=== PATIENT | male | born 1950 | race Caucasian/White ===

== ENCOUNTER 2021-07-21 14:24 | Emergency (ER) | payer MEDICARE, MEDICAID, SELFPAY ==
[2021-07-21 14:25] VITALS: BP 134/90; PULSE 90; RESP 16; TEMP 37.7; O2SAT 98; BMI 24.9
[2021-07-21 14:36] VITALS: PULSE 88; O2SAT 93
--- NOTE | 2021-07-21 14:45 | HMH.EDWEAK ---
ED Disposition Clinical Impression: COVID-19 Disposition: Home, Self-Care Condition on Discharge: Good Instructions: DI for COVID-19 (Suspected or Confirmed ) Additional Instructions: follow up pcp as needed, return here for worse Prescriptions: Ondansetron [Zofran 4mg ODT] 4 mg PO TIDP PRN #15 tab PRN Reason: Nausea And Vomiting Prescription Printed Referrals: Provider,Referral, MD [Primary Care Provider] - - Critical Care Critical Care Time: No Attestation: On , the high probability of a clinically significant, sudden or life threatening deterioration of the following system(s) required my full and direct attention, intervention and personal management. The time I documented below is in addition to time spent performing reported procedures but includes the following listed in this critical care notation. Medical Decision Making - Medical Records Medical records reviewed: Yes: I reviewed the patient's medical records. - Aashish Inquiry Pt receiving controlled substance: No Vital Signs: 07/21/21 14:25 07/21/21 14:36 07/21/21 15:00 Temperature 100 F H Temperature Source Oral Pulse Rate 88 Pulse Rate [Radial] 90 Respiratory Rate 16 Blood Pressure Blood Pressure [Right Arm] 134/90 Blood Pressure Mean [Right Arm] 104 Blood Pressure Position [Right Arm] Sitting 02 Sat by Pulse Oximetry 98 93 L 96 Oxygen Delivery Method Room Air 07/21/21 15:29 Temperature Temperature Source Pulse Rate 91 H Pulse Rate [Radial] Respiratory Rate Blood Pressure 119/80 Blood Pressure [Right Arm] Blood Pressure Mean [Right Arm] Blood Pressure Position [Right Arm] 02 Sat by Pulse Oximetry 95 Oxygen Delivery Method - Lab Data Lab Results 07/21/21 14:33: SARS-CoV-2 (PCR) Detected A, Influenza A Untype (PCR) Not detected, Influenza Type B (PCR) Not detected 07/21/21 14:55: WBC 5.1, RBC 4.68, Hgb 15.2, Hct 45.3, MCV 96.9 H, MCH 32.6 H, MCHC 33.6, RDW 13.2, Plt Count 271, MPV 8.1, Neut % (Auto) 70.1, Lymph % (Auto) 22.4, [place] % (Auto) 4.9, Eos % (Auto) 0.7, Baso % (Auto) 2.0, Neut # (Auto) 3.6, Lymph # (Auto) 1.1, [place] # (Auto) 0.3, Eos # (Auto) 0.0, Baso # (Auto) 0.1 07/21/21 14:55: Sodium 134 L, Potassium 4.3, Chloride 98, Carbon Dioxide 26, Anion Gap 14.3, BUN 15, Creatinine 0.90, Estimated Creat Clear 83, Estimated GFR 84, Est GFR ( Amer) 102, Glucose 96, Calcium 8.2 L, Total Bilirubin 0.9, AST 64 H, ALT 42, Alkaline Phosphatase 81, Total Protein 8.8 H, Albumin 4.3, Globulin 4.5 H, Albumin/Globulin Ratio 1.0 L Result diagrams: 07/21/21 14:55 07/21/21 14:55 Orders (Tests/Meds): ED MEDICATIONS Generic Name Dose Route Start Last Admin Trade Name Freq PRN Reason Stop Dose Admin Sodium Chloride 1,000 mls @ 999 mls/hr 07/21/21 14:45 07/21/21 15:00 Sod Chlor 0.9% 1000ml Bag IV 07/21/21 15:45 999 mls/hr .Q1H1M NEYMAR Administration ORDERS Category Date Time Status Urinalysis and Microscopic Stat Lab 07/21/21 14:44 Ordered Weakness HPI - General Chief complaint: Weakness Stated complaint: not eating Time Seen by Provider: 07/21/21 14:45 Mode of Arrival: Wheelchair Limitations: No Limitations Description of Symptoms (Recalled from ER Triage Doc. by RN): TO ED PER PVT CAR WITH C/O DIARRHEA X 8 DAYS GENERALIZED WEAKNESS AND 50 LB WEIGHT LOSS PER SO. PT STATES HE HAS DIARRHEA EVERY TIME HE EATS SOMETHING DENIES ANY NAUSEA, VOMITING, FEVER, CHILLS. - History of Present Illness HPI Narrative: mult episodes diarrhea wekaness severla days Complaint: generalized weakness Onset (ago): day(s) Duration: constant Location: generalized Severity: moderate Associated symptoms: loss of appetite - Related Data Previous Rx's Medication Instructions Recorded Ondansetron [Zofran 4mg ODT] 4 mg PO TIDP PRN #15 tab 07/21/21 Allergies Allergy/AdvReac Type Severity Reaction Status Date / Time No Known Allergies Allergy Verified 07/05
[2021-07-21 14:49] LABS: Influenza A, PCR Not Detected (NotDetected); Influenza B, PCR Not Detected (NotDetected)
[2021-07-21 15:00] VITALS: O2SAT 96
[2021-07-21 15:11] LABS: Chloride 98 mmol/L (98-107)
[2021-07-21 15:12] LABS: Basophils # 0.1 K/mm3 (0-0.2); Eosinophils % 0.7 % (0.1-12.0); Hematocrit 45.3 % (42.0-52.0); Hemoglobin 15.2 g/dL (14.1-18.0); Lymphocytes # 1.1 K/mm3 (0.7-4.5); Lymphocytes % 22.4 % (10-50); Mean Corpuscular HGB Conc 33.6 g/dL (31.8-35.4); Mean Corpuscular Hemoglobin 32.6 pg (27.0-31.2); Mean Corpuscular Volume 96.9 fl (80-94); Mean Platelet Volume 8.1 fl (7.4-10.4); Monocytes # 0.3 K/mm3 (0.1-1.0); Monocytes % 4.9 % (1.7-9.3); Neutrophils # 3.6 K/mm3 (1.8-7.8); Neutrophils % 70.1 % (37.0-80.0); Platelet Count 271 K/mm3 (142-424); Potassium 4.3 mmoL/L (3.5-5.1); Red Blood Count 4.68 M/mm3 (4.60-6.20); Red Cell Distribution Width 13.2 % (11.5-17.5); Sodium 134 mmol/L (136-145); White Blood Count 5.1 K/mm3 (4.8-10.8)
[2021-07-21 15:14] LABS: Alanine Aminotransferase 42 U/L (12-78); Alkaline Phosphatase 81 U/L (38-126); Anion Gap 14.3 mEq/L (5-15); Aspartate Amino Transferase 64 U/L (17-59); Bilirubin,Total 0.9 mg/dl (0.2-1.3); Carbon Dioxide 26 mmol/L (22.0-30.0)
[2021-07-21 15:15] LABS: Albumin Level 4.3 g/dl (3.5-5.0); Calcium 8.2 mg/dl (8.4-10.2); Globulin 4.5 g/dL (1.3-3.2); Glucose 96 mg/dl (74-100); Total Protein,Serum 8.8 g/dl (6.3-8.2)
[2021-07-21 15:20] LABS: Blood Urea Nitrogen 15 mg/dl (9-20); Creatinine Clearance Estimated 83 mL/min (50-200); Estimated Glomerular Filt Rate 84 ml/min (>60); GFR (African American) 102 ML/MIN (>60)
[2021-07-21 15:27] LABS: Coronavirus 19, PCR Detected (NotDetected)
[2021-07-21 15:29] VITALS: BP 119/80; PULSE 91; O2SAT 95
[2021-07-21 16:18] VITALS: BP 127/69; PULSE 71; RESP 15; TEMP 36.8; O2SAT 98
== END 2021-07-21 16:20 | disposition home or self-care (01) ==
PROVIDERS: Emergency Provider Emergency Medicine
DX: U07.1 COVID-19 (principal)
CPT/HCPCS: 80053; 85025; 96365; 99284; C9803; U0003; U0005

== ENCOUNTER 2024-06-09 14:42 | Emergency (ER) | payer MEDICARE, MEDICAID, SELFPAY ==
[2024-06-09] VITALS (9 sets, daily range): BP systolic 125–173; BP diastolic 83–114; PULSE 76–100; RESP 18–20; TEMP 37.1–37.7; O2SAT 95–98; BMI 25.0
[2024-06-09 15:29] LABS: Basophils % 0.2 % (0.1-2.0); Hematocrit 47.9 % (42.0-52.0); Hemoglobin 16.3 g/dL (14.1-18.0); Lymphocytes # 0.9 K/mm3 (0.7-4.5); Lymphocytes % 10.1 % (10-50); Mean Corpuscular Hemoglobin 31.2 pg (27.0-31.2); Mean Corpuscular Volume 91.6 fl (80-94); Mean Platelet Volume 9.6 fl (7.4-10.4); Monocytes # 0.5 K/mm3 (0.1-1.0); Monocytes % 5.5 % (1.7-9.3); Neutrophils # 7.6 K/mm3 (1.8-7.8); Platelet Count 235 K/mm3 (142-424); Red Blood Count 5.23 M/mm3 (4.60-6.20); Red Cell Distribution Width 13.2 % (11.5-17.5)
[2024-06-09 15:30] LABS: Microscopic, Urine URINE MICROSCOPIC (MICROSCOPIC)
[2024-06-09 15:37] LABS: Appearance,Urine CLEAR (Clear); Bilirubin,Urine Negative (Negative); Blood, Urine 1+ (Negative); Color,Urine YELLOW (Yellow); Glucose,Urine (UA) Negative (Negative); Ketones,Urine Negative (Negative); Leukocyte Esterase,Urine 1+ (Negative); Nitrate,Urine Negative (Negative); Protein,Urine Negative (Negative); Specific Gravity, Urine 1.015 (1.005-1.030); Urobilinogen,Urine 0.2 EU/dl (0.2)
--- NOTE | 2024-06-09 15:46 | CT_ITS ---
PROCEDURE INFORMATION: Exam: CT Abdomen And Pelvis With Contrast Exam date and time: 06/09/2024 4:36 PM Age: 73 years old Clinical indication: Other: Urinary retention; Additional info: Urinary retention, bloody stool TECHNIQUE: Imaging protocol: Computed tomography of the abdomen and pelvis with contrast. Radiation optimization: All CT scans at this facility use at least one of these dose optimization techniques: automated exposure control; mA and/or kV adjustment per patient size (includes targeted exams where dose is matched to clinical indication); or iterative reconstruction. Contrast material: ISOVUE; Contrast volume: 75 ml; Contrast route: IV; COMPARISON: No relevant prior studies available. FINDINGS: Lungs: The lung bases are clear. Liver: Hepatic steatosis. There are subcentimeter hypodensities in the left lobe of the liver likely representing cysts. Gallbladder and biliary ducts: Normal. No calcified stones. No ductal dilation. Pancreas: Normal. No ductal dilation. Spleen: Normal. No splenomegaly. Adrenal glands: Normal. No mass. Kidneys and ureters: Mild bilateral hydronephrosis and hydroureter, likely secondary to the extensive urinary bladder distension. There are mild edematous changes surrounding each kidney. Stomach and bowel: The small bowel loops are not thickened and are nondilated. The colon is unremarkable. Appendix: The appendix is normal in appearance. No evidence of appendicitis. Intraperitoneal space: Unremarkable. No free air. No significant fluid collection. Vasculature: Unremarkable. No abdominal aortic aneurysm. Lymph nodes: Unremarkable. No enlarged lymph nodes. Urinary bladder: Severe distension of the urinary bladder. The dome of the bladder extends beyond the level of the umbilicus. Small bladder diverticulum on the right. Reproductive: Prostatomegaly. The prostate measures about 8.2 x 6.6 x 6.4 cm. Bones/joints: No acute osseous lesion. There are moderate chronic degenerative changes throughout the visualized spine. Soft tissues: Tiny periumbilical hernia. IMPRESSION: 1. Severe distension of the urinary bladder. The dome of the bladder is distended superior to the level of the umbilicus. 2. Mild bilateral hydronephrosis and bilateral hydroureter, likely secondary to the extensive urinary bladder distension. No obstructing ureteral stones identified. 3. Prostatomegaly. 4. Hepatic steatosis.
--- NOTE | 2024-06-09 15:47 | HMH.EDGENADL ---
Discharge Plan Disposition Patient Disposition: Home, Self-Care Prescriptions Prescriptions: New tamsulosin [Flomax] 0.4 mg capsule 0.4 mg PO DAILY 14 Days Qty: 14 0RF cefdinir 300 mg capsule 300 mg PO BID 10 Days Qty: 20 0RF Referrals Follow up/Referrals: Bill Napoles MD [Staff Physician] - See instructions Provider,MD [place] [Primary Care Provider] - See instructions Activity Restrictions/Add. Instructions Additional Instructions/Restrictions: You have evidence of acute urinary retention and a urinary tract infection secondary to an enlarged prostate. Please follow-up closely with our urologist particularly in 5 to 7 days to have your Shelton catheter take that out to have a trial to see if you can urinate. Return with any high fevers significant worsening of your pain or other concerns. Clinical Impressions Clinical Impression: Acute urinary retention, Hematochezia, Hypertrophy of prostate, Acute UTI Instructions Patient Instructions: DI for Urinary Tract Infection (UTI), DI for Urinary Tract Infection in Children Print Language Print Language: [place] Discharge ED Provider: Case Swenson General Adult HPI General Chief complaint: Urogenital-Male Stated complaint: pain and frequent urin, blood in stool, light-head Time Seen by Provider: 06/09/24 15:41 Mode of Arrival: Wheelchair Source of Information: Patient Limitations: No Limitations Description of Symptoms (Recalled from ER Triage Doc. by RN): PT REPORTS LOWER ABDOMINAL PAIN, BLOOD IN STOOL, UNABLE TO URINATE, FREQUENCY AND URGENCY SINCE SUNDAY. PT REPORTS SLIGHT HEADACHE AND DIZZINESS History of Present Illness HPI narrative: Patient is a 73-year-old presenting today with multiple complaints including lower abdominal pain blood in his stool and difficulty urinating. States that he has had increased frequency and urgency for the last several days also had a hard time having a bowel movement last night when he did it would had bright red blood in it. States he has not been constipated up to that point. Denies any fevers or chills. Also states he has been very mildly lightheaded. Denies any other significant past medical history. Related Data Previous Rx's ?Medication ?Instructions ?Recorded cefdinir 300 mg capsule 300 mg PO BID 10 days #20 caps 06/09/24 tamsulosin 0.4 mg capsule (Flomax) 0.4 mg PO DAILY 14 days #14 caps 06/09/24 Allergies Allergy/AdvReac Type Severity Reaction Status Date / Time No Known Allergies Allergy Verified 07/21/21 14:43 [facility] Disclaimer: The information contained in this section may have been updated after the patient was seen, as this information can be updated by other users. Social History Smoking Status: Current every day smoker alcohol intake: never current occupational status: other Travel in the last 8 weeks: None Other Medical History Have you received the Flu Vaccine for this season: No Have you received the Pneumonia Vaccine: No ROS Obtained: Yes All systems reviewed & no additional complaints except as documented Physical Exam General General appearance: alert and in no apparent distress Respiratory Respiratory exam: Present normal lung sounds bilaterally Cardiovascular Cardiovascular exam: Present regular rate Abdominal Exam Abdominal exam: Present distention and tenderness (Bilateral lower quadrant tenderness palpation and suprapubic tenderness to palpation) Neurological Exam Neurological exam: Present alert and oriented X3 Medical Decision Making Medical Records Screening: Per USPSTF and CDC recommendations, given the prevalence of disease in our region, it is our hospital?s policy to screen for HIV and viral Hepatitis for all patients aged 18 and over and those with ongoing risk factors. Aashish Inquiry Pt receiving controlled substance: No Aashish was queried for this patient: No Vital Signs: 06/09/24 14:44 06/09/24 17:07 06/09/24 17:15 Temperature 99.8 F H Temperature Source Oral Pulse Rate 90 83 Pulse Rate [Radial] 100 H Respiratory Rate 18 Blood Pressure 159/114 H 173/107 H Blood Pressure [Right Arm] 154/112 H Blood Pressure Mean [Right Arm] 126 Blood Pressure Source [Right Arm] Automatic Cuff Blood Pressure Position [Right Arm] Sitting 02 Sat by Pulse Oximetry 98 97 95 Oxygen Delivery Method Room Air Room Air Room Air 06/09/24 17:30 06/09/24 17:45 Temperature Temperature Source Pulse Rate 85 85 Pulse Rate [Radial] Respiratory Rate Blood Pressure 159/102 H 144/90 H Blood Pressure [Right Arm] Blood Pressure Mean [Right Arm] Blood Pressure Source [Right Arm] Blood Pressure Position [Right Arm] 02 Sat by Pulse Oximetry 95 95 Oxygen Delivery Method Room Air Room Air Lab Data Lab results reviewed: Yes I reviewed the patient's lab results. Lab Results 06/09/24 15:17: WBC 9.0, RBC 5.23, Hgb 16.3, Hct 47.9, MCV 91.6, MCH 31.2, MCHC 34.0, RDW 13.2, Plt Count 235, MPV 9.6, Neut % (Auto) 84.0 H, Lymph % (Auto) 10.1, [place] % (Auto) 5.5, Eos % (Auto) 0.0 L, Baso % (Auto) 0.2, Neut # (Auto) 7.6, Lymph # (Auto) 0.9, [place] # (Auto) 0.5, Eos # (Auto) 0.0, Baso # (Auto) 0.0, Sodium 142, Potassium 4.1, Chloride 107, Carbon Dioxide 22, Anion Gap 17.1 H, BUN 14, Creatinine 1.10, Estimated Creat Clear 75, Estimated GFR 66, Est GFR ( Amer) 80, Glucose 136 H, Lactate 1.3, Calcium 9.8, Total Bilirubin 0.5, AST 71 H, ALT 43, Alkaline Phosphatase 132 H, Total Protein 8.8 H, Albumin 5.3 H, Globulin 3.5 H, Albumin/Globulin Ratio 1.5, HCV Ab DODIE w/Rflx PCR Qn Negative, HIV Ag/Ab Combo Qual Negative 06/09/24 15:25: Urine Color Yellow, Urine Appearance Clear, Urine pH 6.0, Ur Specific [place] 1.015, Urine Protein Negative, Urine Glucose (UA) Negative, Urine Ketones Negative, Urine Blood 1+ A, Urine Nitrate Negative, Urine Bilirubin Negative, Urine Urobilinogen 0.2, Ur Leukocyte Esterase 1+ A, Urine RBC 3-5, Urine WBC 3-5, Ur Squamous Epith Cells Occasional, Urine Bacteria Trace 06/09/24 15:17 06/09/24 15:17 Orders (Tests/Meds): ED MEDICATIONS Generic Name Dose Route Start Last Admin Trade Name Freq PRN Reason Stop Dose Admin Sodium Chloride 10 ml 06/09/24 15:16 Sodium Chloride 0.9% 10ml Flush Syringe IV 07/09/24 15:15 NEEDED PRN Maintain IV Site Sodium Chloride 10 ml 06/09/24 16:44 06/09/24 16:46 Sodium Chloride 0.9% 10ml Syr (Rad Only) IV 07/09/24 16:43 10 ml NEEDED PRN Administration Maintain IV Site Discontinued Medications Generic Name Dose Route Start Last Admin Trade Name Freq PRN Reason Stop Dose Admin Lactated Ringer's 1,000 mls @ 999 mls/hr 06/09/24 16:00 06/09/24 17:18 Lactated Ringer's 1000 Ml Bag IV 06/09/24 17:00 999 mls/hr .Q1H1M NEYMAR Administration Ceftriaxone Sodium 1 gm/ 50 mls @ 100 mls/hr 06/09/24 17:14 06/09/24 17:17 Sodium Chloride IV 06/09/24 17:43 100 mls/hr ONCE ONE Administration Iopamidol 75 ml 06/09/24 16:44 06/09/24 16:46 Iopamidol-370 (76%);100ml Bottle IV 06/09/24 16:45 75 ml ONCE ONE Administration Morphine Sulfate 4 mg 06/09/24 15:46 06/09/24 17:12 Morphine 4mg/Ml Syringe IV 06/09/24 15:47 4 mg ONCE ONE Administration Ondansetron HCl 4 mg 06/09/24 15:46 06/09/24 17:12 Ondansetron 4mg/2ml Vial IV 06/09/24 15:47 4 mg ONCE ONE Administration ORDERS Category Date Time Status CT abdomen pelvis w con Stat Cat Scan 06/09/24 15:46 Completed Complete Blood Count Auto Diff Stat Lab 06/09/24 15:17 Completed Comprehensive Metabolic Panel Stat Lab 06/09/24 15:17 Completed HIV Combo Stat Lab 06/09/24 15:17 Completed Hepatitis C Ab Qual. W/ RFX Stat Lab 06/09/24 15:17 Completed Lactic Acid Stat Lab 06/09/24 15:17 Completed Urinalysis and Microscopic Stat Lab 06/09/24 15:25 Completed Urine Culture Stat Micro 06/09/24 15:25 Received Medical Decision Narrative: 73-year-old with a distended lower abdomen and urinary retention and difficulty with having defecation last night with little bit of blood in the stool. Differential includes constipation and urinary retention secondary to that tumor urinary tract infection with debris etc. Will get a contrasted CT scan administer pain medicine nausea medicine IV fluids and reassess. Reassessment 616 CT scan performed which I personally interpreted which shows a very enlarged bladder and prostate hypertrophy. Also has some hydronephrosis likely secondary to the obstruction. It seems to be secondary to the prostate hypertrophy. Shelton catheter was placed with significant improvement in the patient's symptoms 1200 cc of urine was taken out. Patient did have evidence of urinary tract infection Rocephin given in the emergency department and cefdinir sent home with the patient. He has no other signs or symptoms of prostatitis but that is on the differential. He has been advised to follow-up with urology in 5 to 7 days for a voiding trial to return with any significant worsening symptoms such as fever etc. A leg bag was given to the patient. Shelton catheter care discussed with the patient and was discharged in improved and stable condition. Critical Care Critical Care Time Critical Care Time: No
[2024-06-09 16:19] LABS: Lactic Acid 1.3 mmol/L (0.7-2.1)
[2024-06-09 16:20] LABS: Alanine Aminotransferase 43 U/L (12-78); Albumin Level 5.3 g/dl (3.5-5.0); Albumin/Globulin Ratio 1.5 (1.1-1.8); Alkaline Phosphatase 132 U/L (38-126); Anion Gap 17.1 mEq/L (5-15); Aspartate Amino Transferase 71 U/L (17-59); Bilirubin,Total 0.5 mg/dl (0.2-1.3); Blood Urea Nitrogen 14 mg/dl (9-20); Calcium 9.8 mg/dl (8.4-10.2); Carbon Dioxide 22 mmol/L (22.0-30.0); Chloride 107 mmol/L (98-107); Creatinine Clearance Estimated 75 mL/min (50-200); Estimated Glomerular Filt Rate 66 ml/min (>60); GFR (African American) 80 ML/MIN (>60); Globulin 3.5 g/dL (1.3-3.2); Glucose 136 mg/dl (74-100); Potassium 4.1 mmoL/L (3.5-5.1); Sodium 142 mmol/L (136-145); Total Protein,Serum 8.8 g/dl (6.3-8.2)
[2024-06-09 16:29] LABS: HIV Combo NEGATIVE (Negative)
[2024-06-09 16:38] LABS: Bacteria,Urine Trace /lpf; Squamous Epithelial Cell,Urine Occasional #/hpf (0-5)
[2024-06-09 16:38] LABS: Hepatitis C Ab Qual. W/ RFX NEGATIVE (Negative)
[2024-06-09] MEDS: IOPAMIDOL-370 (76%);100ML BOTTLE 75 ML IV (16:46)
[2024-06-09] MEDS: SODIUM CHLORIDE 0.9% 10ML SYR (RAD ONLY) 10 ML IV (16:46)
[2024-06-09] MEDS: MORPHINE 4MG/ML SYRINGE 4 MG IV (17:12)
[2024-06-09] MEDS: ONDANSETRON 4MG/2ML VIAL 4 MG IV (17:12)
[2024-06-09] MEDS: CEFTRIAXONE 1 GM 1 GM in 0.9 % SODIUM CHLORIDE 50 ML IV (17:17)
[2024-06-09] MEDS: LACTATED RINGERS 1000ML 1,000 ML 999 ML IV (17:18)
--- NOTE | 2024-06-09 18:03 | PC.NURSE ---
inserted argueta without issues and emptied 1200 ml of urine out immediately, pt felt better instantly
--- NOTE | 2024-06-09 18:03 | PC.NURSE ---
pt resting quietly awaiting re eval by kristy mejia
== END 2024-06-09 18:46 | disposition home or self-care (01) ==
PROVIDERS: Emergency Provider Student in an Organized Health Care Education/Training Program
DX: N39.0 Urinary tract infection, site not specified (principal); N40.0 Benign prostatic hyperplasia without lower urinary tract symptoms; R10.30 Lower abdominal pain, unspecified; K92.1 Melena; R33.8 Other retention of urine; R35.0 Frequency of micturition; R39.15 Urgency of urination; R51.9 Headache, unspecified; R42 Dizziness and giddiness
CPT/HCPCS: 51702; 74177; 80053; 81001; 83605; 85025; 86803; 87086; 87389; 96361; 96365; 96374; 96375; 99285; J0696; J2270; J2405; J7120; Q9967

== ENCOUNTER 2024-06-22 14:11 | Emergency (ER) | payer MEDICARE, MEDICAID, SELFPAY ==
[2024-06-22] VITALS (7 sets, daily range): BP systolic 125–139; BP diastolic 78–102; PULSE 79–101; RESP 16–20; TEMP 37.2–37.8; O2SAT 97–100; BMI 25.0
--- NOTE | 2024-06-22 14:40 | ED_ITS ---
<Statement entered by Case Swenson MD - 06/25/24 12:45> I was consulted by the KECIA, and we discussed the complexity of the problems being addressed. I approved the treatment and management plan for this patient?s care in the Emergency Department, thus performing a substantive portion of the medical decision making Discharge Plan Disposition Patient Disposition: Home, Self-Care Condition: Good Prescriptions Prescriptions: New levofloxacin 500 mg tablet 500 mg PO DAILY 10 Days Qty: 10 0RF polyethylene glycol 3350 [Miralax] 17 gram/dose powder 17 g PO DAILY 4 Days Qty: 68 0RF No Action tamsulosin [Flomax] 0.4 mg capsule 0.4 mg PO DAILY 90 Days Qty: 90 1RF cefdinir 300 mg capsule 300 mg PO BID 10 Days Qty: 20 0RF Referrals Follow up/Referrals: Bill Napoles MD [Staff Physician] - See instructions Provider,MD Carolina [Primary Care Provider] - See instructions Activity Restrictions/Add. Instructions Additional Instructions/Restrictions: Please take the entirety of the course of antibiotics. Increase your fluid intake. Please leave the catheter in until you are able to follow-up with urology. Please call urologist office Sunday morning. Return to the ED with any worsening of your condition. Clinical Impressions Clinical Impression: UTI (urinary tract infection) Qualifiers: Urinary tract infection type: acute cystitis Hematuria presence: with hematuria Qualified Code(s): N30.01 - Acute cystitis with hematuria Constipation Qualifiers: Constipation type: unspecified constipation type Qualified Code(s): K59.00 - Constipation, unspecified Instructions Patient Instructions: DI for Urinary Tract Infection (UTI), DI for Urinary Tract Infection in Children Print Language Print Language: Norwegian Discharge ED Provider: Case Swenson General Adult [facility] General Chief complaint: Urogenital-Male Stated complaint: F/C out on 06/16/24 now peeing blood,no bowel movem Time Seen by Provider: 06/22/24 14:39 Mode of Arrival: Ambulatory Source of Information: Patient Limitations: No Limitations Description of Symptoms (Recalled from ER Triage Doc. by RN): Patient presents via wheelchair. States his argueta catheter was removed 06/16. States he was prescribed Flomax. Stated he took one on Sunday and then took another 6 hours later, which was not prescribed, and started urinating blood. Also endorses vomiting 6 episodes. States he hasn't had a bowel movement in 3-4 days. Denies abdominal pain but endorses distension. History of Present Illness HPI narrative: Patient is a 73-year-old male who presents to the ED with complaints of urinary retention and hematuria that started today. Patient has recently been treated for UTI at the beginning of the month with cefdinir and Flomax. He had an indwelling Argueta that was removed on 06/16/2024 by urology. Related Data Previous Rx's ?Medication ?Instructions ?Recorded cefdinir 300 mg capsule 300 mg PO BID 10 days #20 caps 06/09/24 tamsulosin 0.4 mg capsule (Flomax) 0.4 mg PO DAILY 90 days #90 caps 06/16/24 levofloxacin 500 mg tablet 500 mg PO DAILY 10 days #10 tabs 06/22/24 polyethylene glycol 3350 17 17 g PO DAILY 4 days #68 grams 06/22/24 gram/dose oral powder (Miralax) Allergies Allergy/AdvReac Type Severity Reaction Status Date / Time No Known Allergies Allergy Verified 06/16/24 11:18 [facility] Disclaimer: The information contained in this section may have been updated after the patient was seen, as this information can be updated by other users. Social History Smoking Status: Current every day smoker alcohol intake: never current occupational status: other Travel in the last 8 weeks: None Have you lived/traveled outside US in past 30 days?: No Contact w/someone who lives/traveled outside US past 30 days?: No Exposure to someone with infectious disease in past 14 days?: No Do you have a fever (greater than 100.4 F or 38 C)?: No Have you tested positive for COVID-19: No Exposed to someone with COVID-19 in past 14 days?: No Do you have a sore throat?: No Do you have a cough?: No Do you have any weakness?: No Do you have any diarrhea?: No Are you experiencing any unusual bleeding?: No Do you have any muscle aches/pain?: No Do you have any abdominal pain?: No Are you experiencing loss of taste or smell?: No Other Medical History Have you received the Flu Vaccine for this season: No Have you received the Pneumonia Vaccine: No ROS Obtained: Yes Systems reviewed as appropriate & no additional complaints except as documented Physical Exam General General appearance: alert and in no apparent distress Head Head exam: atraumatic and normocephalic Eye Eye exam: Present normal appearance and PERRL ENT ENT exam: Present normal exam Neck Neck exam: Present normal inspection Chest Chest inspection: Present normal inspection and symmetric chest wall rise; Absent tenderness Respiratory Respiratory exam: Present normal lung sounds bilaterally Cardiovascular Cardiovascular exam: Present regular rate Abdominal Exam Abdominal exam: Present soft, tenderness (suprapubic) and normal bowel sounds Extremities Exam Extremities exam: Present normal inspection and full ROM Back Exam Back exam: Present normal inspection and full ROM Neurological Exam Neurological exam: Present alert and oriented X3 Psychiatric Psychiatric exam: Present normal affect and normal mood Skin Skin exam: Present warm and dry Medical Decision Making Medical Records Screening: Per USPSTF and CDC recommendations, given the prevalence of disease in our region, it is our hospital?s policy to screen for HIV and viral Hepatitis for all patients aged 18 and over and those with ongoing risk factors. Aashish Inquiry Pt receiving controlled substance: No Aashish was queried for this patient: No Vital Signs: 06/22/24 14:24 06/22/24 14:34 06/22/24 15:00 Temperature 100.1 F H Temperature Source Oral Pulse Rate 101 H 87 Pulse Rate [Radial] 95 H Respiratory Rate 16 Blood Pressure 139/102 H 133/89 Blood Pressure [R Arm] 132/82 Blood Pressure Mean [R Arm] 98 Blood Pressure Source [R Arm] Automatic Cuff 02 Sat by Pulse Oximetry 100 97 98 Oxygen Delivery Method Room Air Room Air 06/22/24 15:15 06/22/24 15:31 06/22/24 16:02 Temperature Temperature Source Pulse Rate 85 85 84 Pulse Rate [Radial] Respiratory Rate Blood Pressure 125/78 129/101 H Blood Pressure [R Arm] Blood Pressure Mean [R Arm] Blood Pressure Source [R Arm] 02 Sat by Pulse Oximetry 97 98 98 Oxygen Delivery Method Room Air Room Air 06/22/24 16:58 Temperature 98.9 F Temperature Source Pulse Rate 79 Pulse Rate [Radial] Respiratory Rate 20 Blood Pressure 129/101 H Blood Pressure [R Arm] Blood Pressure Mean [R Arm] Blood Pressure Source [R Arm] 02 Sat by Pulse Oximetry Oxygen Delivery Method Room Air Lab Data Lab Results 06/22/24 15:00: Urine Color Kitty, Urine Appearance Cloudy, Urine pH 6.5, Ur Specific [place] 1.015, Urine Protein 3+ A, Urine Glucose (UA) Trace, Urine Ketones Trace, Urine Blood 3+ A, Urine Nitrate Positive A, Urine Bilirubin 2+ A, Urine Urobilinogen 1.0, Ur Leukocyte Esterase Trace, Urine RBC 20-50, Urine WBC 3-5, Ur Squamous Epith Cells 3-5, Urine Bacteria Trace 06/22/24 15:40: WBC 6.6, RBC 4.35 L, Hgb 13.7 L, Hct 41.1 L, MCV 94.5 H, MCH 31.5 H, MCHC 33.3, RDW 13.0, Plt Count 244, MPV 9.2, Neut % (Auto) 57.9, Lymph % (Auto) 31.2, [place] % (Auto) 7.8, Eos % (Auto) 2.1, Baso % (Auto) 0.8, Neut # (Auto) 3.9, Lymph # (Auto) 2.1, [place] # (Auto) 0.5, Eos # (Auto) 0.1, Baso # (Auto) 0.1, Sodium 143, Potassium 3.7, Chloride 107, Carbon Dioxide 28, Anion Gap 11.7, BUN 13, Creatinine 1.10, Estimated Creat Clear 75, Estimated GFR 66, Est GFR ( Amer) 80, Glucose 95, Calcium 9.5, Total Bilirubin 0.3, AST 40, ALT 28, Alkaline Phosphatase 97, Total Protein 8.0, Albumin 4.4, Globulin 3.6 H, Albumin/Globulin Ratio 1.2 06/22/24 15:40 06/22/24 15:40 Orders (Tests/Meds): ED MEDICATIONS Discontinued Medications Generic Name Dose Route Start Last Admin Trade Name Freq PRN Reason Stop Dose Admin Lidocaine HCl 1 ml 06/22/24 14:45 06/22/24 14:49 Lidocaine 2% Urojet 10ml TP 06/22/24 14:46 1 ml ONCE ONE Administration ORDERS Category Date Time Status CBC w/Auto Diff [Complete Blood Count Auto Diff] Stat Lab 06/22/24 15:40 Completed CMP [Comprehensive Metabolic Panel] Stat Lab 06/22/24 15:40 Completed Urinalysis and Microscopic Stat Lab 06/22/24 15:00 Completed Urine Culture Stat Micro 06/22/24 15:00 Received Medical Decision Narrative: In summary, patient is a 73-year-old male PMHx history of UTI, history of hypertrophy of the prostate, urinary retention who presents to the ED for urinary retention. At the beginning of June, patient was treated for a UTI with cefdinir, given Flomax. He followed up with urology and had a Argueta catheter removed. Patient states that today he has been unable to urinate. Upon initial exam, patient is alert, oriented and cooperative. Patient is hemodynamically stable. Physical exam remarkable for suprapubic tenderness and mild distention. Denies fever, chills, body aches, headache, visual cyst, posterior neck pain, chest pain, shortness of breath, nausea, vomiting, flank pain. Differential diagnosis includes sepsis, UTI, urinary retention. Initial workup will be conducted with hematologic labs and urinalysis. Initial workup reviewed by me. Hematologic labs remarkable for normal CBC, stable H&H. CMP unremarkable for any actionable abnormalities. Urinalysis remarkable for protein, blood, nitrate, bilirubin. I discussed with patient that he has a complicated UTI. Will need to keep Argueta in place until follow-up with urology. Upon repeat evaluation, patient had an acceptable resolution of symptoms. They were ambulatory in the ED. Able to tolerate PO. Upon discharge, patient is requesting something for constipation, states he has not had a bowel movement in 2 days. He continues to deny abdominal pain, abdomen is soft and nontender. Given this, patient is appropriate to be discharged at this time. He will be discharged with the Argueta cath in place. Discussed the course of Levaquin. Advised him to follow back up with urology next week. We discussed return precautions to the ED including but not limited to fever, back pain, abdominal pain. Patient verbalized understanding. Upon discharge, he was hemodynamically stable and ambulatory without difficulty from the ED. Critical Care Critical Care Time Critical Care Time: No
--- NOTE | 2024-06-22 14:45 | PC.NURSE ---
bladder scan showed 1500
[2024-06-22] MEDS: LIDOCAINE 2% UROJET 10ML TP (14:49)
[2024-06-22 15:04] LABS: Appearance,Urine CLOUDY (Clear); Blood, Urine 3+ (Negative); Color,Urine AMBER (Yellow); Glucose,Urine (UA) TRACE (Negative); Ketones,Urine TRACE (Negative); Leukocyte Esterase,Urine TRACE (Negative); Microscopic, Urine URINE MICROSCOPIC (MICROSCOPIC); Nitrate,Urine POSITIVE (Negative); PH,Urine 6.5 (5.0-8.5); Protein,Urine 3+ (Negative); Specific Gravity, Urine 1.015 (1.005-1.030)
[2024-06-22 15:09] LABS: Bilirubin,Urine 2+ (Negative)
[2024-06-22 15:14] LABS: Bacteria,Urine Trace /lpf; RBC,Urine 20-50 #/hpf (0-3)
--- NOTE | 2024-06-22 15:52 | PC.NURSE ---
Patient given a sandwich and drink.
[2024-06-22 15:53] LABS: Basophils # 0.1 K/mm3 (0-0.2); Basophils % 0.8 % (0.1-2.0); Eosinophils # 0.1 K/mm3 (0.0-0.4); Eosinophils % 2.1 % (0.1-12.0); Hematocrit 41.1 % (42.0-52.0); Hemoglobin 13.7 g/dL (14.1-18.0); Lymphocytes # 2.1 K/mm3 (0.7-4.5); Lymphocytes % 31.2 % (10-50); Mean Corpuscular HGB Conc 33.3 g/dL (31.8-35.4); Mean Corpuscular Hemoglobin 31.5 pg (27.0-31.2); Mean Corpuscular Volume 94.5 fl (80-94); Mean Platelet Volume 9.2 fl (7.4-10.4); Monocytes # 0.5 K/mm3 (0.1-1.0); Monocytes % 7.8 % (1.7-9.3); Neutrophils # 3.9 K/mm3 (1.8-7.8); Neutrophils % 57.9 % (37.0-80.0); Platelet Count 244 K/mm3 (142-424); Red Blood Count 4.35 M/mm3 (4.60-6.20); White Blood Count 6.6 K/mm3 (4.8-10.8)
[2024-06-22 15:55] LABS: Albumin Level 4.4 g/dl (3.5-5.0); Chloride 107 mmol/L (98-107); Potassium 3.7 mmoL/L (3.5-5.1); Sodium 143 mmol/L (136-145)
[2024-06-22 15:58] LABS: Alanine Aminotransferase 28 U/L (12-78); Albumin/Globulin Ratio 1.2 (1.1-1.8); Alkaline Phosphatase 97 U/L (38-126); Anion Gap 11.7 mEq/L (5-15); Aspartate Amino Transferase 40 U/L (17-59); Bilirubin,Total 0.3 mg/dl (0.2-1.3); Blood Urea Nitrogen 13 mg/dl (9-20); Calcium 9.5 mg/dl (8.4-10.2); Carbon Dioxide 28 mmol/L (22.0-30.0); Creatinine Clearance Estimated 75 mL/min (50-200); Estimated Glomerular Filt Rate 66 ml/min (>60); GFR (African American) 80 ML/MIN (>60); Globulin 3.6 g/dL (1.3-3.2); Glucose 95 mg/dl (74-100)
== END 2024-06-22 16:59 | disposition home or self-care (01) ==
PROVIDERS: Nurse Practitioner; Emergency Provider Student in an Organized Health Care Education/Training Program
DX: N30.01 Acute cystitis with hematuria (principal); K59.00 Constipation, unspecified; R33.9 Retention of urine, unspecified; Z72.0 Tobacco use
CPT/HCPCS: 51702; 80053; 81001; 85025; 87086; 99283

== ENCOUNTER 2024-07-03 11:13 | Emergency (ER) | payer MEDICARE, MEDICAID, SELFPAY ==
[2024-07-03 11:14] VITALS: BP 136/72; PULSE 64; RESP 16; TEMP 36.6; O2SAT 98; BMI 25.0
--- NOTE | 2024-07-03 11:26 | PC.NURSE ---
Abdon Colon in room talking with patient at this time
--- NOTE | 2024-07-03 11:27 | ED_ITS ---
Discharge Plan Disposition Patient Disposition: Home, Self-Care Condition: Good Prescriptions Prescriptions: No Action tamsulosin [Flomax] 0.4 mg capsule 0.4 mg PO DAILY 90 Days Qty: 90 1RF cefdinir 300 mg capsule 300 mg PO BID 10 Days Qty: 20 0RF levofloxacin 500 mg tablet 500 mg PO DAILY 10 Days Qty: 10 0RF polyethylene glycol 3350 [Miralax] 17 gram/dose powder 17 g PO DAILY 4 Days Qty: 68 0RF Referrals Follow up/Referrals: Bill Napoles MD [Staff Physician] - See instructions Provider,MD [place] [Primary Care Provider] - See instructions Activity Restrictions/Add. Instructions Additional Instructions/Restrictions: Please follow-up with your primary care provider as well as with urology. Return to the emergency department for new or worsening symptoms. Clinical Impressions Clinical Impression: Complication of Shelton catheter Stand Alone Forms Stand Alone Forms: Work/School Release Instructions Patient Instructions: How to Care for Your Shelton Catheter -- Male Print Language Print Language: Ukrainian Discharge ED Provider: Kitty Coppola General Adult HPI General Chief complaint: Urogenital-Male Stated complaint: Catheter Leaking Time Seen by Provider: 07/03/24 11:17 History of Present Illness HPI narrative: This patient is a 73-year-old male with history of constipation and urinary retention requiring Shelton catheter placement presenting to the emergency departm ent for evaluation with concern that his spout from his bag is leaking. He denies any other concerns or complaints. No fevers, abdominal pain, or other issues. Related Data Previous Rx's ?Medication ?Instructions ?Recorded cefdinir 300 mg capsule 300 mg PO BID 10 days #20 caps 06/09/24 tamsulosin 0.4 mg capsule (Flomax) 0.4 mg PO DAILY 90 days #90 caps 06/16/24 levofloxacin 500 mg tablet 500 mg PO DAILY 10 days #10 tabs 06/22/24 polyethylene glycol 3350 17 17 g PO DAILY 4 days #68 grams 06/22/24 gram/dose oral powder (Miralax) Allergies Allergy/AdvReac Type Severity Reaction Status Date / Time No Known Allergies Allergy Verified 06/16/24 11:18 [facility] Disclaimer: The information contained in this section may have been updated after the patient was seen, as this information can be updated by other users. Social History Smoking Status: Current every day smoker alcohol intake: never current occupational status: other Travel in the last 8 weeks: None Have you lived/traveled outside US in past 30 days?: No Contact w/someone who lives/traveled outside US past 30 days?: No Exposure to someone with infectious disease in past 14 days?: No Do you have a fever (greater than 100.4 F or 38 C)?: No Have you tested positive for COVID-19: No Exposed to someone with COVID-19 in past 14 days?: No Do you have a sore throat?: No Do you have a cough?: No Do you have any weakness?: No Do you have any diarrhea?: No Are you experiencing any unusual bleeding?: No Do you have any muscle aches/pain?: No Do you have any abdominal pain?: No Are you experiencing loss of taste or smell?: No Other Medical History Have you received the Flu Vaccine for this season: No Have you received the Pneumonia Vaccine: No ROS Obtained: Yes All systems reviewed & no additional complaints except as documented Physical Exam General General appearance: alert and in no apparent distress Head Head exam: atraumatic and normocephalic Eye Eye exam: Present normal appearance, PERRL and EOMI ENT ENT exam: Present normal exam, normal oropharynx, mucous membranes moist and normal external ear exam Neck Neck exam: Present normal inspection, full ROM and trachea midline; Absent tenderness Chest Chest inspection: Present normal inspection and symmetric chest wall rise; Absent tenderness Respiratory Respiratory exam: Present normal lung sounds bilaterally; Absent respiratory distress, wheezes, stridor or accessory muscle use Cardiovascular Cardiovascular exam: Present regular rate and normal rhythm Abdominal Exam Abdominal exam: Present soft; Absent distention, tenderness or guarding Extremities Exam Extremities exam: Present normal inspection, full ROM and normal capillary refill; Absent tenderness or edema Back Exam Back exam: Present normal inspection and full ROM; Absent tenderness Neurological Exam Neurological exam: Present alert, oriented X3, CN II-XII intact and normal gait; Absent motor sensory deficit Psychiatric Psychiatric exam: Present normal affect and normal mood Skin Skin exam: Present warm and dry Medical Decision Making Medical Records Medical records reviewed: Yes I reviewed the patient's medical records. Screening: Per USPSTF and CDC recommendations, given the prevalence of disease in our region, it is our hospital?s policy to screen for HIV and viral Hepatitis for all patients aged 18 and over and those with ongoing risk factors. Aashish Inquiry Pt receiving controlled substance: No Vital Signs: 07/03/24 11:14 07/03/24 11:45 Temperature 97.9 F 97.9 F Temperature Source Oral Oral Pulse Rate 68 Pulse Rate [Radial] 64 Respiratory Rate 16 16 Blood Pressure 130/71 Blood Pressure [Right Arm] 136/72 Blood Pressure Mean [Right Arm] 93 Blood Pressure Source Automatic Cuff Blood Pressure Source [Right Arm] Automatic Cuff Blood Pressure Position Sitting Blood Pressure Position [Right Arm] Sitting 02 Sat by Pulse Oximetry 98 Oxygen Delivery Method Room Air Room Air Lab Data Lab results reviewed: Yes I reviewed the patient's lab results. Medical Decision Narrative: In summary, this patient is a 73-year-old male presenting to the Emergency Department for evaluation of Shelton catheter bag leaking. Patient has no other concerns or complaints and is otherwise doing well with no issues. The bag itself is leaking. Given this, we will plan to exchange. 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 Shelton catheter bag was exchanged without issue, and at this time I feel the patient is appropriate for discharge with close follow-up with primary care and urology. Strict return precautions given and instructions for catheter care given. Critical Care Critical Care Time Critical Care Time: No
--- NOTE | 2024-07-03 11:40 | PC.NURSE ---
MCINTYRE LEG BAG CHANGED UNDER STERILE TECHNIQUE, DRAINING CLEAR URINE. PT TOLERATED WELL
[2024-07-03 11:45] VITALS: BP 130/71; PULSE 68; RESP 16; TEMP 36.6; O2SAT 98
== END 2024-07-03 11:45 | disposition home or self-care (01) ==
PROVIDERS: Emergency Provider Emergency Medicine
DX: T83.038A Leakage of other urinary catheter, initial encounter (principal)
CPT/HCPCS: 99282

== ENCOUNTER 2025-01-06 11:11 | Emergency (ER) | payer MEDICAID, SELFPAY ==
[2025-01-06 11:20] VITALS: BP 143/80; PULSE 90; RESP 16; TEMP 36.9; O2SAT 98; BMI 25.0
--- NOTE | 2025-01-06 11:56 | ED_ITS ---
<Statement entered by Case Swenson MD - 01/06/25 15:16> I was consulted by the KECIA, and we discussed the complexity of the problems being addressed. I approved the treatment and management plan for this patient's care in the emergency department, thus performing a substantive portion of the medical decision making. Case Swenson MD, AVELINA, FACEP Discharge Plan Disposition Patient Disposition: Home, Self-Care Condition: Good Prescriptions Prescriptions: New sulfamethoxazole-trimethoprim [Bactrim DS] 800-160 mg tablet 1 tab PO BID 14 Days Qty: 28 0RF omeprazole 40 mg capsule,delayed release(DR/EC) 40 mg PO DAILY 28 Days Qty: 28 0RF No Action tamsulosin [Flomax] 0.4 mg capsule 0.4 mg PO DAILY 90 Days Qty: 90 1RF cefdinir 300 mg capsule 300 mg PO BID 10 Days Qty: 20 0RF levofloxacin 500 mg tablet 500 mg PO DAILY 10 Days Qty: 10 0RF polyethylene glycol 3350 [Miralax] 17 gram/dose powder 17 g PO DAILY 4 Days Qty: 68 0RF Referrals Follow up/Referrals: Rip Benavides II, MD [Staff Physician, Gastroenterology] - See instructions Provider,ReferralMD [Primary Care Provider, Medical] - See instructions Activity Restrictions/Add. Instructions Additional Instructions/Restrictions: Please return to the emergency department with any worsening signs or symptoms, please take your medication (antibiotic) as prescribed, with food for 14 days twice daily, please follow-up with urologist and GI doctor in the upcoming days/weeks. Clinical Impressions Clinical Impression: Hematochezia, Acute UTI Instructions Patient Instructions: DI for Urinary Tract Infection (UTI) Print Language Print Language: Kyrgyz Discharge ED Provider: Case Swenson General Adult HPI General Chief complaint: Urogenital-Male Stated complaint: Burning with Urination, Blood in Stool Time Seen by Provider: 01/06/25 11:50 Mode of Arrival: Ambulatory Source of Information: Patient Limitations: No Limitations History of Present Illness HPI narrative: 74-year-old male presents to ED with a 1 week history of hematochezia/BBPR, nonpainful, endorses decreased urinary frequency/dysuria, denies any hematuria, denies any fever chills chest pain shortness of breath nausea vomiting constipation diarrhea does endorse some mild suprapubic/lower abdominal pain at times, denies any constipation diarrhea, no melena, no hematemesis or hemoptysis, patient is a current everyday smoker, occasionally utilizes alcohol, denies any other drug use, other past medical history is consistent with previous Shel[place] catheter insertion for urinary retention, BPH on Flomax, otherwise unremarkable past medical history takes no other medication at home. Initial triage vitals are unremarkable. Of note, patient denies any new sexual contacts, no risky sexual behaviors, no genitourinary lesions, no urethral discharge. Please note that above description of symptoms, in this electronic medical record under categorization of recalled from ER triage doctor by RN are reflective of an initial nursing assessment, however, is not reflective of my full history and physical exam that was personally taken and clarified. Consequentially, this preceding description of symptoms, which may include the patient's categorized chief complaint in the EMR, do not reflect my personal clinical impression, and the ultimate description of history of present illness and patient stated complaints should be deferred to this section of the note. Unless stated otherwise or congruent with this section of the note, additional signs, symptoms, or incongruence should be interpreted as inaccurate with my clinical impression. Onset (ago): week(s) Related Data Previous Rx's ?Medication ?Instructions ?Recorded cefdinir 300 mg capsule 300 mg PO BID 10 days #20 ca ps 06/09/24 tamsulosin 0.4 mg capsule (Flomax) 0.4 mg PO DAILY 90 days #90 caps 06/16/24 levofloxacin 500 mg tablet 500 mg PO DAILY 10 days #10 tabs 06/22/24 polyethylene glycol 3350 17 17 g PO DAILY 4 days #68 g ventura 06/22/24 gram/dose oral powder (Miralax) omeprazole 40 mg capsule,delayed 40 mg PO DAILY 4 week s #28 caps 01/06/25 release sulfamethoxazole 800 1 tab PO BID 14 days #28 tab s 01/06/25 mg-trimethoprim 160 mg tablet (Bactrim DS) Allergies Allergy/AdvReac Type Severity Reaction Status Date / Time No Known Allergies Allergy Verified 06/16/24 11:18 [facility] Disclaimer: The information contained in this section may have been updated after the patient was seen, as this information can be updated by other users. Social History Smoking Status: Current every day smoker alcohol intake: never current occupational status: other Travel in the last 8 weeks?: None Have you lived/traveled outside US in past 30 days?: No Contact w/someone who lives/traveled outside US past 30 days?: No Exposure to someone with infectious disease in past 14 days?: No Do you have a fever (greater than 100.4 F or 38 C)?: No Have you tested positive for COVID-19?: No Exposed to someone with COVID-19 in past 14 days?: No Do you have a sore throat?: No Do you have a cough?: No Do you have any weakness?: No Do you have any diarrhea?: No Are you experiencing any unusual bleeding?: No Do you have any muscle aches/pain?: No Do you have any abdominal pain?: No Are you experiencing loss of taste or smell?: No Other Medical History Have you received the Flu Vaccine for this season: No Have you received the Pneumonia Vaccine: No ROS Obtained: Yes All systems reviewed & no additional complaints except as documented Physical Exam General General appearance: alert and in no apparent distress Head Head exam: atraumatic and normocephalic Eye Eye exam: Present PERRL and EOMI ENT ENT exam: Present mucous membranes moist Neck Neck exam: Present normal inspection Chest Chest inspection: Present normal inspection and symmetric chest wall rise Respiratory Respiratory exam: Present normal lung sounds bilaterally; Absent respiratory distress Cardiovascular Cardiovascular exam: Present regular rate and normal rhythm Abdominal Exam Abdominal exam: Present soft and tenderness; Absent guarding or rebound Abdominal tenderness: Present suprapubic and mild Rectal Exam Rectal exam: Present normal rectal tone, bloody stool and hemorrhoids comment: External hemorrhoid present at approximately 8 to 7 PM, no strangulation Extremities Exam Extremities exam: Present normal inspection Neurological Exam Neurological exam: Present alert and oriented X3 Psychiatric Psychiatric exam: Present normal affect Skin Skin exam: Present warm and dry Medical Decision Making Medical Records Medical records reviewed: Yes I reviewed the patient's medical records. Screening: Per USPSTF and CDC recommendations, given the prevalence of disease in our region, it is our hospital?s policy to screen for HIV and viral Hepatitis for all patients aged 18 and over and those with ongoing risk factors. Aashish Inquiry Pt receiving controlled substance: No Aashish was queried for this patient: No Vital Signs: 01/06/25 11:20 01/06/25 13:03 01/06/25 13:35 Temperature 98.4 F Temperature Source Oral Pulse Rate 78 82 Pulse Rate [Right] 90 Respiratory Rate 16 Blood Pressure 164/98 H 131/89 Blood Pressure [Right Arm] 143/80 H Blood Pressure Mean [Right Arm] 101 Blood Pressure Source Blood Pressure Source [Right Arm] Automatic Cuff Blood Pressure Position 02 Sat by Pulse Oximetry 98 99 100 Oxygen Delivery Method Room Air 01/06/25 14:35 Temperature 98.4 F Temperature Source Oral Pulse Rate 76 Pulse Rate [Right] Respiratory Rate 15 Blood Pressure 131/89 Blood Pressure [Right Arm] Blood Pressure Mean [Right Arm] Blood Pressure Source Automatic Cuff Blood Pressure Source [Right Arm] Blood Pressure Position Sitting 02 Sat by Pulse Oximetry Oxygen Delivery Method Room Air Lab Data Lab results reviewed: Yes I reviewed the patient's lab results. Lab Results 01/06/25 11:40: Urine Color Yellow, Urine Appearance Turbid, Urine pH 6.0, Ur Specific [place] 1.015, Urine Protein 1+ A, Urine Glucose (UA) Negative, Urine Ketones Negative, Urine Blood 2+ A, Urine Nitrate Negative, Urine Bilirubin Negative, Urine Urobilinogen 0.2, Ur Leukocyte Esterase 3+ A, Urine RBC 3-5, Urine WBC Tntc, Ur Squamous Epith Cells None, Urine Bacteria Trace 01/06/25 12:17: WBC 4.3 L, RBC 4.32 L, Hgb 13.7 L, Hct 40.1 L, MCV 92.8, MCH 31.7 H, MCHC 34.2, RDW 13.7, Plt Count 220, MPV 9.5, Neut % (Auto) 43.8, Lymph % (Auto) 42.1, [place] % (Auto) 11.8 H, Eos % (Auto) 1.4, Baso % (Auto) 0.9, Neut # (Auto) 1.9, Lymph # (Auto) 1.8, [place] # (Auto) 0.5, Eos # (Auto) 0.1, Baso # (Auto) 0.0, PT 12.8 H, INR 1.17 H, APTT 30.5, Sodium 140, Potassium 3.8, C hloride 109 H, Carbon Dioxide 23, Anion Gap 11.8, BUN 11, Creatinine 0.80, Estimated Creat Clear 81, Estimated GFR 95, Est GFR ( Amer) 115, Glucose 104 H, Calcium 9.6, Total Bilirubin 0.4, AST 57, ALT 26, Alkaline Phosphatase 106, Total Protein 7.7, Albumin 4.4, Globulin 3.3 H, Albumin/Globulin Ratio 1.3, Lipase 65, Plasma/Serum Alcohol < 10 01/06/25 12:36: Stool Occult Blood Positive A 01/06/25 12:17 01/06/25 12:17 Orders (Tests/Meds): ED MEDICATIONS Discontinued Medications Generic Name Dose Route Start Last Admin Trade Name Freq PRN Reason Stop Dose Admin Iopamidol 80 ml 01/06/25 13:01 01/06/25 13:03 Iopamidol-370 (76%);100ml Bottle IV 01/06/25 13:02 80 ml ONCE ONE Administration Sodium Chloride 40 ml 01/06/25 13:01 01/06/25 13:02 0.9 % Sodium Chloride 50 Ml Vial IV 01/06/25 13:02 40 ml ONCE ONE Administration Sodium Chloride 10 ml 01/06/25 13:01 01/06/25 13:03 Sodium Chloride 0.9% 10ml Syr (Rad Only) IV 01/06/25 13:02 10 ml ONCE ONE Administration ORDERS Category Date Time Status CT angio abd/pel - GI Bleed Stat Cat Scan 01/06/25 12:10 Completed Complete Blood Count Auto Diff Stat Lab 01/06/25 12:17 Completed Comprehensive Metabolic Panel Stat Lab 01/06/25 12:17 Completed Ethanol [Ethyl Alcohol] Stat Lab 01/06/25 12:17 Completed Lipase Stat Lab 01/06/25 12:17 Completed Occult Blood,Stool Stat Lab 01/06/25 12:36 Completed PT INR [Prothrombin Time INR] Stat Lab 01/06/25 12:17 Completed PTT [Activated Partial Thrombo Time] Stat Lab 01/06/25 12:17 Completed UA [Urinalysis and Microscopic] Stat Lab 01/06/25 11:40 Completed Urinalysis and Microscopic Stat Lab 01/06/25 12:17 Ordered Urine Culture Stat Micro 01/06/25 11:40 Received Medical Decision Narrative: 74-year-old male presents to the emergency department with BRBPR, urinary frequency urinary retention and dysuria for 1 week, differential diagnose include but not limited to GI bleed, constipation, external hemorrhoids, internal hemorrhoids, urinary outflow obstruction, BPH, prostatitis, acute UTI, acute pyelonephritis among others. I discussed this patient's case with the attending physician Will obtain basic laboratory studies, PT/INR, PTT, bladder scan, UA, lipase level, ethyl alcohol level, fecal occult stool, obtain CTA abdomen pelvis GI bleed protocol. Patient's bladder scan per nursing staff yielded over 300 mL in the urinary bladder. 1+ proteinuria is noted on UA, hematuria is 2+, 3+ leukocyte esterase, negative nitrites. CBC is notable for leukopenia 4.3, erythrocyte pi?a 4.32, hemoglobin hematocrit 13.7/40.1 otherwise unremarkable CBC Microscopic urinalysis is notable for 3-5 RBCs, too numerous to count white blood cells, squamous epithelial cells are negative urine bacteria is trace PT is 12.8, INR 1.17 PTT within normal limit Plasma/serum alcohol level was less than 10. Fecal occult blood positive. I reviewed the patient's CTA abdomen pelvis GI bleed protocol, no definitive evidence of active GI bleed, bladder wall thickening with right posterior lateral bladder diverticulum mild right hydronephrosis like related to the diverticulum. I discussed the results with the patient at the bedside, patient remained hemodynamically stable throughout his time in the emergency department, no other acute complaints, will prescribe the patient Bactrim DS p.o. twice daily for 14 days for prostatitis versus complicated urinary tract infection in a male. Patient to follow-up with urologist, as well as GI doctor in the upcoming days, GI bleeding is ruled out at this time, hemoglobin hematocrit are stable, no active GI bleed on CTA, patient most likely has a external possible internal hemorrhoid with painless hematochezia. Patient voiced understanding and agreement with the current treatment plan/discharge plan. Strict ED return precaution given. Of note, prior to discharge, patient was complaining of some acid reflux, has taken Pepcid and Pepto-Bismol, at home, will give 40 mg omeprazole p.o. to take once daily for 4 weeks, do not take while on p.o. antibiotic, patient voiced understanding and will begin taking medication after antibiotic course is complete. Recommend follow-up with GI. Critical Care Critical Care Time Critical Care Time: No
[2025-01-06 12:02] LABS: Microscopic, Urine URINE MICROSCOPIC (MICROSCOPIC)
[2025-01-06 12:06] LABS: Bilirubin,Urine Negative (Negative); Color,Urine YELLOW (Yellow); Glucose,Urine (UA) Negative (Negative); Ketones,Urine Negative (Negative); Leukocyte Esterase,Urine 3+ (Negative); PH,Urine 6.0 (5.0-8.5); Protein,Urine 1+ (Negative); Specific Gravity, Urine 1.015 (1.005-1.030); Urobilinogen,Urine 0.2 EU/dl (0.2)
--- NOTE | 2025-01-06 12:10 | CT_ITS ---
FINAL REPORT TECHNIQUE: Pre-and postcontrast images of the abdomen through the pelvis were performed by computed tomography. A CTA was performed for evaluation of GI bleed. This study was performed with techniques to keep radiation doses as low as reasonably achievable (ALARA). Individualized dose reduction techniques using automated exposure control or adjustment of mA and/or kV according to the patient's size were employed. CLINICAL HISTORY: BBPR, urinary retention COMPARISON: 06/09/2024 FINDINGS: Pre infusion images: No evidence of kidney stones. Post infusion images: The lung bases are clear. Mild fatty infiltration of the liver. The gallbladder is normal. There is a small sliding-type hiatal hernia. The spleen, pancreas, adrenal glands, kidneys are unremarkable. The appendix is unremarkable. The urinary bladder is distended. There is a right posterolateral bladder diverticulum. Mild right hydronephrosis is noted extending to the bladder diverticulum. There is abnormal mucosal thickening circumferentially in the urinary bladder. The prostate is enlarged measuring up to 7 cm in craniocaudal dimension. There is a lobular component to the prostate extending into the base of the bladder. The GI tract demonstrates no active evidence of GI bleed. The celiac axis and SMA have a conjoined origin. Dual renal arteries bilaterally are noted to be patent. IMPRESSION: No definite evidence of active GI bleed. Bladder wall thickening with right posterolateral bladder diverticulum. Mild right hydronephrosis, likely related to the diverticulum. Reviewed, Interpreted and Dictated by Hammad Avery MD Transcribed by Lenora Rivas Authenticated and . [facility]
--- OUTSIDE RECORDS SUMMARY | 2025-01-06 12:18 | XMS_ITS | Clinical Summary ---
Author Organization Healthcare Address [address] [place] [address] Care Team Providers [facility] Field Coordinator Name Role Phone Charu Watts MD Primary Care Provider [phone] Allergies No known active allergies Medications atorvastatin (Lipitor) 20 MG tabletIndications: Mixed hyperlipidemia Take 1 tablet (20 mg total) by mouth 1 (one) time each day. 30 tablet 11 12/31/19 21 Active Additional Information Patient not taking.Reported on 07/16/2024 tamsulosin (Flomax) 0.4 MG 24 hr capsule Take 1 capsule (0.4 mg) by mouth daily. 06/21/19 25 Active Active Problems No known active problems Family History Medical History Relation Name Comments Diabetes type II Mother Stroke Mother Thyroid disease Mother Relation Name Status Comments Mother Social History Tobacco Use Types Packs/Day Years Used Date Smoking Tobacco: Every Day Cigarettes 1 55 Smokeless Tobacco: Never Tobacco Cessation:Ready to Q uit: Not Asked; Counseling Given: Not Answered Alcohol Use Standard Drinks/Week Comments Yes 2 (1 standard drink = 0.6 oz pur e alcohol) occ Humiliation, Afraid, Rape, and Kick questionnair e Answer Date Recorded Within the last year, have y ou been afraid of your partner or ex-partner? No 07/16/2024 Within the last year, have y ou been humiliated or emotionally abused in other ways by your partner or ex-partner? No Within the last year, have y ou been kicked, hit, slapped, or otherwise physically hurt by your partner or ex-partner? No 07/16/2024 Within the last year, have y ou been raped or forced to have any kind of sexual activity by your partner or ex-partner? No 07/16/2024 PHQ-2 Answer Date Recorded Patient Health Questionnaire-2 Score 0 07/16/2024 Hunger Vital Sign Answer Date Recorded Within the past 12 months, y ou worried that your food would run out before you got the money to buy more. Never true 07/17/19 25 Within the past 12 months, t he food you bought just didn't last and you didn't have money to get more. Never true 07/16/2024 PRAPARE - Transportation Answer Date Re corded In the past 12 months, has l ack of transportation kept you from medical appointments or from getting medications? No 07/05 In the past 12 months, has l ack of transportation kept you from meetings, work, or from getting things needed for daily living? No 07/16/2024 PHQ-9 Answer Date Recorded Patient Health Questionnaire-9 Score 0 07/16/2024 Housing Stability Vital Sign Answer Rojelio e Recorded In the last 12 months, was t here a time when you were not able to pay the mortgage or rent on time? No 07/16/2024 In the past 12 months, how m any times have you moved where you were living? 1 07/16/2024 At any time in the past 12 m [facility], were you homeless or living in a fpc (including now)? No 07/16/2024 Safety and Environment Answer Date Zaire rded Do you worry that your child may have been physically abused? Patient unable to answer 07/16/2024 Do you worry that your child may have been sexually abused? Patient unable to answer 07/16/2024 Are there any guns kept in o r around your home or where your child spends time? Patient unable to answer 07/16/2024 Guns Unloaded or Locked Away Not on file 04/2025 Utilities Answer Date Recorded In the past 12 months has th e electric, gas, oil, or water company threatened to shut off services in your home? No 07/16/2024 Sex and Gender Information Value Date Recorded Sex Assigned at Not on file Legal Sex Male 8:07 AM EDT Gender Identity Not on file Sexual Orientation Not on file Last Filed Vital Signs Vital Sign Reading Time Taken Comments Blood Pressure 122/82 07/16/2024 10:44 AM EDT Pulse 76 07/16/2024 10:44 AM EDT Temperature 37.1 C (98.8 F) 07/16/2024 10:44 AM EDT Respiratory Rate 18 07/16/2024 10:44 AM EDT Oxygen Saturation 96% 07/16/2024 10:44 AM EDT Inhaled Oxygen Concentration - - Weight 87.7 kg (193 lb 5.5 oz) 07/16/2024 10:44 AM EDT Height 185.4 cm (6' 1 ) 07/16/2024 10:44 AM EDT Body Mass Index 25.51 07/16/2024 10:44 AM EDT Plan of Treatment Health Maintenance Due Date Last Done Comments [facility]-Hepatitis C Screening 1950 [facility]-Medicare Annual Wellness (AWV) 1950 [facility]-DTaP,Tdap,and Td Vaccine s (1 - Tdap) 11/17/1971 [facility]-Pneumococcal Vaccine: 50 + Years (1 of 2 - PCV) 11/17/1971 CT Colonography 1997 Colonoscopy 1997 FIT-DNA 1997 FIT 1997 FOBT 1997 Sigmoidoscopy 1997 [facility]-Colorectal Cancer Screening 1997 [facility]-Lung Cancer Screening 2002 [facility]-Zoster Vaccines (1 of 2) 2002 [facility]-Abdominal Aortic Aneurys m (AAA) Screening 2017 [id number] Vaccine ( season) 2024 [facility]-Influenza Vaccine (#1) 2025 [facility]- SDOH Screenings 01/16/2025 [facility]-Adult SDOH Screenings 01/16/2025 07/16/2024 [facility]-/Child/Adol SDOH Screenings 01/16/2025 07/16/2024 [facility]-Depression Screening 07/16/2025 025, 07/16/2024 [facility]-RSV Vaccine: 60+ Years o r (1 - 1-dose 75+ series) 11/17/2027 [facility]-Diabetes: Hemoglobin A1C Discontinued 04/2025, 12/29/2020 [facility]-Obesity Intervention Completed 07/16/2024 HPV Vaccines Aged Out No longer eligi ble based on patient's age to complete this topic [facility]-HIB Vaccines Aged Out No longer e ligible based on patient's age to complete this topic [facility]-Hepatitis A Vaccines Aged Out No longer eligible based on patient's age to complete this topic [facility]-IPV Vaccines Aged Out No longer e ligible based on patient's age to complete this topic [facility]-Rotavirus Vaccines Aged Out No lo nger eligible based on patient's age to complete this topic Procedures Procedure Name Priority Date/Time Associated Diagnosis Comments HEMOGLOBIN A1C Routine 07/16/2024 11:34 AM EDT Mixed hyperlipidemia from Last 3 Months or Most Recently Relevant to Health Maintenance Results * Hemoglobin A1c (07/16/2024 11:34 AM EDT) Hemoglobin A1c 5.6 <5.7 % 07/16/2024 7:09 PM EDT [facility] Blood Venous blood specimen / Unknown Venipuncture / Unknown 07/16/2024 11:34 AM EDT 07/16/2024 11:34 AM EDT Narrative [facility] - 07/16/2024 7:09 PM EDT HA1C Interpretive Data: Diagnosis of Diabetes: Diabetic > or = 6.5% Pre-diabetic 5.7 to 6.4% Non-diabetic < or = 5.6% Glycemic Targets for Type I and Type II Diabetics: Non- Adults <7.0% Adults <6.0% Children and Adolescents <7.5% Source: [place] [employer]. Standards of medical care in diabetes,2017. Diabetes Care.2017:40 (suppl 1):S1-S135. HbA1c assay performed by an ion-exchange chromatography method that is certified traceable to the DCCT. Charu Watts MD LAB BLOOD ORDERABLES Final Result [facility] [address] [place] [address] from Last 3 Months or Most Recently Relevant to Health Maintenance Insurance [facility] MEDICAID [facility] MEDICARE Care Teams [facility] Field Coordinator Relationship Specialty Start Date End Date Charu Watts MD [address] [place] [phone] PCP - General 07/16/24
[2025-01-06 12:23] LABS: Hematocrit 40.1 % (42.0-52.0); Hemoglobin 13.7 g/dL (14.1-18.0); Immature Granulocytes % 0 %; Mean Corpuscular HGB Conc 34.2 g/dL (31.8-35.4); Mean Corpuscular Hemoglobin 31.7 pg (27.0-31.2); Mean Corpuscular Volume 92.8 fl (80-94); Nucleated Red Blood Cells % 0 %; Platelet Count 220 K/mm3 (142-424); Red Blood Count 4.32 M/mm3 (4.60-6.20); Red Cell Distribution Width-SD 47.1 fL; White Blood Count 4.3 K/mm3 (4.8-10.8)
[2025-01-06 12:25] LABS: Bacteria,Urine Trace /lpf; WBC,Urine TNTC #/hpf (0-3)
[2025-01-06 12:35] LABS: Activated Partial Thrombo Time 30.5 seconds (22.8-30.6); Albumin Level 4.4 g/dl (3.5-5.0); Chloride 109 mmol/L (98-107); INR 1.17 (0.9-1.1); Potassium 3.8 mmoL/L (3.5-5.1); Prothrombin Time 12.8 seconds (10.1-12.5); Sodium 140 mmol/L (136-145)
[2025-01-06 12:37] LABS: Blood Urea Nitrogen 11 mg/dl (9-20); Creatinine Clearance Estimated 81 mL/min (50-200); Creatinine,Serum 0.80 mg/dl (0.66-1.25); Estimated Glomerular Filt Rate 95 ml/min (>60); GFR (African American) 115 ML/MIN (>60); Lipase 65 U/L (23-300)
[2025-01-06 12:38] LABS: Alanine Aminotransferase 26 U/L (12-78); Albumin/Globulin Ratio 1.3 (1.1-1.8); Alkaline Phosphatase 106 U/L (38-126); Anion Gap 11.8 mEq/L (5-15); Aspartate Amino Transferase 57 U/L (17-59); Bilirubin,Total 0.4 mg/dl (0.2-1.3); Calcium 9.6 mg/dl (8.4-10.2); Carbon Dioxide 23 mmol/L (22.0-30.0); Globulin 3.3 g/dL (1.3-3.2); Glucose 104 mg/dl (74-100); Total Protein,Serum 7.7 g/dl (6.3-8.2)
[2025-01-06 12:46] LABS: Occult Blood,Stool Positive (Negative)
[2025-01-06] MEDS: 0.9 % SODIUM CHLORIDE 50 ML VIAL 40 ML IV (13:02)
[2025-01-06 13:03] VITALS: BP 164/98; PULSE 78; O2SAT 99
[2025-01-06] MEDS: IOPAMIDOL-370 (76%);100ML BOTTLE 80 ML IV (13:03)
[2025-01-06] MEDS: SODIUM CHLORIDE 0.9% 10ML SYR (RAD ONLY) 10 ML IV (13:03)
[2025-01-06 13:35] VITALS: BP 131/89; PULSE 82; O2SAT 100
[2025-01-06 14:35] VITALS: BP 131/89; PULSE 76; RESP 15; TEMP 36.9; O2SAT 96
== END 2025-01-06 14:46 | disposition home or self-care (01) ==
PROVIDERS: Physician Assistant; Emergency Provider Student in an Organized Health Care Education/Training Program
DX: N39.0 Urinary tract infection, site not specified (principal); K92.1 Melena
CPT/HCPCS: 51798; 74174; 80053; 80320; 81001; 82272; 83690; 85025; 85610; 85730; 87086; 87088; 99283; 99284; G0328; Q9967

== ENCOUNTER 2025-04-14 06:40 | Emergency (ER) | payer MEDICAID, SELFPAY ==
[2025-04-14 06:58] VITALS: BP 136/89
--- NOTE | 2025-04-14 07:00 | ED_ITS ---
Discharge Plan Disposition Patient Disposition: Home, Self-Care Condition: Good Prescriptions Prescriptions: New omeprazole 40 mg capsule,delayed release(DR/EC) 40 mg PO DAILY 56 Days Qty: 56 0RF tamsulosin 0.4 mg capsule 0.4 mg PO DAILY Qty: 14 0RF cefadroxil 500 mg capsule 500 mg PO BID Qty: 14 0RF No Action tamsulosin [Flomax] 0.4 mg capsule 0.4 mg PO DAILY 90 Days Qty: 90 1RF cefdinir 300 mg capsule 300 mg PO BID 10 Days Qty: 20 0RF levofloxacin 500 mg tablet 500 mg PO DAILY 10 Days Qty: 10 0RF polyethylene glycol 3350 [Miralax] 17 gram/dose powder 17 g PO DAILY 4 Days Qty: 68 0RF sulfamethoxazole-trimethoprim [Bactrim DS] 800-160 mg tablet 1 tab PO BID 14 Days Qty: 28 0RF omeprazole 40 mg capsule,delayed release(DR/EC) 40 mg PO DAILY 28 Days Qty: 28 0RF sulfamethoxazole-trimethoprim [Bactrim DS] 800-160 mg tablet 1 tab PO BID 14 Days Qty: 28 0RF omeprazole 40 mg capsule,delayed release(DR/EC) 40 mg PO DAILY 28 Days Qty: 28 0RF Referrals Follow up/Referrals: Bill Napoles MD [Staff Physician, Urology] - See instructions Provider,MD Carolina [Primary Care Provider, Medical] - See instructions Activity Restrictions/Add. Instructions Additional Instructions/Restrictions: Keep Shelton catheter in place. It is very important to follow-up with urology for voiding trial. They will talk to you then about continuing the Flomax, but you should take it for now. It is okay if the urine is somewhat pink-tinged, but if you begin to notice clots or decreased output from the Shelton catheter, you should return Stay well-hydrated. Return if any fevers, decreased urine output into the Shelton catheter or significantly bloody output. Please follow up with your primary care provider in 2-3 days. Please return to ED if your symptoms worsen, change in location, change in severity, new symptoms develop or if you become concerned for your health. Clinical Impressions Clinical Impression: Acute on chronic urinary retention, Shelton catheter in place, Pyelonephritis Instructions Patient Instructions: DI for Urinary Tract Infection (UTI), DI for Urinary Tract Infection in Children Print Language Print Language: Grenadian Discharge ED Provider: Andrew De Luna General Adult HPI General Chief complaint: Urogenital-Male Stated complaint: Possible UTI Time Seen by Provider: 04/14/25 06:59 History of Present Illness HPI narrative: Patient is a 74-year-old male with a history of BPH and urinary tension with UTIs in the past. He presents today due to concerns for similar complaints as prior. He reports that he has been urinating frequently, every 20 minutes. He reports that this has been indolently getting worse over the last month. He reports that he has been out of his Flomax. He reports that he has required Shelton catheters before due to urinary obstruction. He reports that his urine is also turned cloudy and some burning sensation. Reporting some occasional left flank pain that is throbbing in nature, nothing sharp. He has no history of kidney stones. He reports he still having bowel movements and passing gas denying any hematochezia. He reports some nausea with some stomach acid but denies any vomiting. Denies any fevers or other infectious symptoms. I reviewed patient's previous urine cultures demonstrating 1 from January 2025 strep acidominimus. Related Data Previous Rx's ?Medication ?Instructions ?Recorded cefdinir 300 mg capsule 300 mg PO BID 10 days #20 ca ps 06/09/24 tamsulosin 0.4 mg capsule (Flomax) 0.4 mg PO DAILY 90 days #90 caps 06/16/24 levofloxacin 500 mg tablet 500 mg PO DAILY 10 days #10 tabs 06/22/24 polyethylene glycol 3350 17 17 g PO DAILY 4 days #68 g ventura 06/22/24 gram/dose oral powder (Miralax) omeprazole 40 mg capsule,delayed 40 mg PO DAILY 4 week s #28 caps 01/06/25 release omeprazole 40 mg capsule,delayed 40 mg PO DAILY 4 week s #28 caps 01/06/25 release sulfamethoxazole 800 1 tab PO BID 14 days #28 tab s 01/06/25 mg-trimethoprim 160 mg tablet (Bactrim DS) sulfamethoxazole 800 1 tab PO BID 14 days #28 tab s 01/06/25 mg-trimethoprim 160 mg tablet (Bactrim DS) cefadroxil 500 mg capsule 500 mg PO BID #14 caps 04/14 omeprazole 40 mg capsule,delayed 40 mg PO DAILY 8 week s #56 caps 12/09/25 release tamsulosin 0.4 mg capsule 0.4 mg PO DAILY #14 caps 01/29 Allergies Allergy/AdvReac Type Severity Reaction Status Date / Time No Known Allergies Allergy Verified 06/16/24 11:18 [facility] Disclaimer: The information contained in this section may have been updated after the patient was seen, as this information can be updated by other users. Social History Smoking Status: Current every day smoker alcohol intake: never current occupational status: other Travel in the last 8 weeks?: None Have you lived/traveled outside US in past 30 days?: No Contact w/someone who lives/traveled outside US past 30 days?: No Exposure to someone with infectious disease in past 14 days?: No Do you have a fever (greater than 100.4 F or 38 C)?: No Have you tested positive for COVID-19?: No Exposed to someone with COVID-19 in past 14 days?: No Do you have a sore throat?: No Do you have a cough?: No Do you have any weakness?: No Do you have any diarrhea?: No Are you experiencing any unusual bleeding?: No Do you have any muscle aches/pain?: No Do you have any abdominal pain?: No Are you experiencing loss of taste or smell?: No Other Medical History Have you received the Flu Vaccine for this season: No Have you received the Pneumonia Vaccine: No ROS Obtained: Yes All systems reviewed & no additional complaints except as documented Physical Exam General General appearance: alert and in no apparent distress Head Head exam: atraumatic and normocephalic Eye Eye exam: Present PERRL and EOMI ENT ENT exam: Present normal oropharynx Neck Neck exam: Present full ROM and trachea midline Chest Chest inspection: Present symmetric chest wall rise Respiratory Respiratory exam: Present normal lung sounds bilaterally; Absent stridor Cardiovascular Cardiovascular exam: Present regular rate and normal rhythm Abdominal Exam Abdominal exam: Present soft and tenderness (Suprapubic with suprapubic fullness palpable. Mild left CVA tenderness); Absent distention Extremities Exam Extremities exam: Present full ROM Neurological Exam Neurological exam: Present alert and oriented X3 Psychiatric Psychiatric exam: Present normal mood Skin Skin exam: Present warm and dry Medical Decision Making Medical Records Screening: Per USPSTF and CDC recommendations, given the prevalence of disease in our region, it is our hospital?s policy to screen for HIV and viral Hepatitis for all patients aged 18 and over and those with ongoing risk factors. Aashish Inquiry Pt receiving controlled substance: No Vital Signs: 04/14/25 06:58 04/14/25 07:02 04/14/25 09:05 Temperature 98.7 F Temperature Source Oral Pulse Rate [Right Radial] 67 Respiratory Rate 16 Blood Pressure 136/89 183/123 H Blood Pressure [Right Arm] 136/89 Blood Pressure Mean 104 139 Blood Pressure Mean [Right Arm] 104 Blood Pressure Source [Right Arm] Automatic Cuff 02 Sat by Pulse Oximetry 98 Oxygen Delivery Method Room Air Lab Data Lab Results 04/14/25 07:00: Urine Color Yellow, Urine Appearance Cloudy, Urine pH 5.5, Ur Specific [place] 1.010, Urine Protein Trace, Urine Glucose (UA) Negative, Urine Ketones Negative, Urine Blood 1+ A, Urine Nitrate Negative, Urine Bilirubin Negative, Urine Urobilinogen 0.2, Ur Leukocyte Esterase 3+ A, Urine RBC None, Urine WBC Tntc, Ur Squamous Epith Cells Occasional, Urine Bacteria 1+ 04/14/25 07:23: WBC 5.1, RBC 4.66, Hgb 14.7, Hct 43.9, MCV 94.2 H, MCH 31.5 H, MCHC 33.5, RDW 13.1, Plt Count 228, MPV 9.1, Neut % (Auto) 60.8, Lymph % (Auto) 27.1, [place] % (Auto) 9.0, Eos % (Auto) 2.1, Baso % (Auto) 0.8, Neut # (Auto) 3.1, Lymph # (Auto) 1.4, [place] # (Auto) 0.5, Eos # (Auto) 0.1, Baso # (Auto) 0.0, Sodium 140, Potassium 3.9, Chloride 107, Carbon Dioxide 21 L, Anion Gap 15.9 H, BUN 10, Creatinine 0.90, Estimated Creat Clear 74, Estimated GFR 83, Est GFR ( Amer) 100, Glucose 110 H, Calcium 9.5, Phosphorus 4.2, Magnesium 2.0, Total Bilirubin 0.5, AST 34, ALT 20, Alkaline Phosphatase 108, Total Protein 8.2, Albumin 4.7, Globulin 3.5 H, Albumin/Globulin Ratio 1.3 04/14/25 07:23 04/14/25 07:23 Orders (Tests/Meds): ED MEDICATIONS Discontinued Medications Generic Name Dose Route Start Last Admin Trade Name Bia PRN Reason Stop Dose Admin Acetaminophen 1,000 mg 04/14/25 08:48 04/14/25 08:53 Acetaminophen 500mg Tab PO 04/14/25 08:49 1,000 mg ONCE ONE Administration Belladonna Alkaloids 60 ml 04/14/25 07:26 04/14/25 07:53 Belladonna Alkaloids 60 Ml Ml PO 04/14/25 07:27 60 ml ONCE ONE Administration Cocaine HCl 1 ml 04/14/25 08:48 04/14/25 09:21 Cocaine 4% Topical Soln 4ml Bottle TP 04/14/25 08:49 Not Given ONCE ONE Epinephrine HCl 1 mg 04/14/25 08:48 04/14/25 09:22 Epinephrine 1 Mg/Ml Vial TP 04/14/25 08:49 Not Given ONCE ONE Famotidine 20 mg 04/14/25 07:26 04/14/25 07:53 Famotidine 20mg Tablet PO 04/14/25 07:27 20 mg ONCE ONE Administration Ceftriaxone Sodium 2 gm/ 100 mls @ 200 mls/hr 04/14/25 08:10 04/14/25 09:26 Sodium Chloride IV 04/14/25 08:39 Infused ONCE ONE Infusion Ketorolac Tromethamine 15 mg 04/14/25 08:48 04/14/25 08:53 Ketorolac 15mg/Ml Vial IV 04/14/25 08:49 15 mg ONCE ONE Administration Lidocaine HCl 1 ml 04/14/25 08:48 04/14/25 08:53 Lidocaine 2% Urojet 10ml TP 04/14/25 08:49 1 ml ONCE ONE Administration ORDERS Category Date Time Status Complete Blood Count Auto Diff Stat Lab 04/14/25 07:23 Completed Comprehensive Metabolic Panel Stat Lab 04/14/25 07:23 Completed Magnesium Stat Lab 04/14/25 07:23 Completed Phosphorous Stat Lab 04/14/25 07:23 Completed Urinalysis and Microscopic Stat Lab 04/14/25 07:00 Completed Urine Culture Stat Micro 04/14/25 07:00 Received Medical Decision Narrative: Patient is a 74-year-old male with a history of BPH and urinary retention requiring Shelton catheterization. He used to be on Flomax, but has not been compliant with that as of recent. He reports that he takes omeprazole as well, but has been out of that. He reports increasing urinary frequency. On arrival, he is afebrile hemodynamically stable no acute distress on exam warm well- perfused with full ankle pulses. Brisk cap refill. On exam, has some suprapubic fullness and some mild left flank tenderness. His postvoid residual bladder scan on arrival was greater than 400. A Shelton catheter will be placed due to BPH and I will start him on Flomax outpatient. Will send this urine to evaluate for infection and check his kidney function to ensure no significant hydroureteronephrosis causing postobstructive uropathy. Given his report of burning sensation and regurgitation of stomach acid, will treat him with Pepcid and GI cocktail here and restart him on his omeprazole. Follow-up with PCP and urology. On reassessment, patient did have some blood with catheter insertion, likely traumatic. This Shelton catheter was flushed by nursing staff and blood cleared. Was reporting some pain in the urethral meatus, but after Tylenol Toradol and Uro-Jet, reports improvement. Still good output from his Shelton. Urology follow-up outpatient. Will treat with UTI outpatient. My clinical impression was discussed with the patient and all questions were answered. Return precautions were given, with verbalization of understanding and agreement of this plan. Any pending results are to be followed up online. Critical Care Critical Care Time Critical Care Time: No
[2025-04-14 07:02] VITALS: BP 136/89; PULSE 67; RESP 16; TEMP 37.1; O2SAT 98; BMI 22.8
--- OUTSIDE RECORDS SUMMARY | 2025-04-14 07:05 | XMS_ITS | Clinical Summary ---
Author Organization Healthcare Address [address] [place] [address] Care Team Providers Care Nuclear Monitoring Technician Name Role Phone Charu Watts MD Primary Care Provider [phone]- [phone] Allergies No known active allergies Medications atorvastatin [...] any time in the past 12 m [facility], were you homeless or living in a [...] 1997 Sigmoidoscopy 1997 [facility]-Colorectal Cancer Screening 1997 Lung Cancer Screening Shared Decision Making 2002 [facility]-Lung Cancer Screening 2002 [facility]-Zoster Vaccines (1 of 2) 2002 [facility]-Abdominal Aortic Aneurys m (AAA) Screening 2017 [id number] Vaccine ( season) 2025 [facility]-Influenza Vaccine (#1) 2025 [facility]- SDOH Screenings [...] 5.6 <5.7 % 07/16/2024 7:09 PM EDT [facility] Blood Venous blood specimen / Unknown Venipuncture / Unknown 07/16/2024 11:34 AM EDT 07/16/2024 11:34 AM EDT Narrative [facility] - 07/16/2024 7:09 PM EDT HA1C Interpretive Data: Diagnosis of Diabetes: Diabetic > or = 6.5% Pre-diabetic 5.7 to 6.4% Non-diabetic < or = 5.6% Glycemic Targets for Type I and Type II Diabetics: Non- Adults <7.0% Adults <6.0% Children and Adolescents <7.5% Source: [place] Diabetes Association. Standards of medical care in diabetes,2017. Diabetes Care.2017:40 (suppl 1):S1-S135. HbA1c assay performed by an ion-exchange chromatography method that is certified traceable to the DCCT. Charu Watts MD LAB BLOOD ORDERABLES Final Result [facility] [address] [place] [address] from Last 3 Months or Most Recently Relevant to Health Maintenance Insurance [facility] MED[facility] MEDICARE Care Teams Nuclear Monitoring Technician Relationship Specialty Start Date End Date Charu Watts MD [address] [place] [phone] PCP - General 07/16/24
[2025-04-14 07:23] LABS: Microscopic, Urine URINE MICROSCOPIC (MICROSCOPIC)
[2025-04-14 07:34] LABS: Hematocrit 43.9 % (42.0-52.0); Hemoglobin 14.7 g/dL (14.1-18.0); Immature Granulocytes % 0.2 %; Mean Corpuscular HGB Conc 33.5 g/dL (31.8-35.4); Mean Corpuscular Hemoglobin 31.5 pg (27.0-31.2); Mean Corpuscular Volume 94.2 fl (80-94); Nucleated Red Blood Cells % 0 %; Platelet Count 228 K/mm3 (142-424); Red Blood Count 4.66 M/mm3 (4.60-6.20); Red Cell Distribution Width-SD 45.1 fL; White Blood Count 5.1 K/mm3 (4.8-10.8)
[2025-04-14 07:41] LABS: Alanine Aminotransferase 20 U/L (12-78); Albumin Level 4.7 g/dl (3.5-5.0); Albumin/Globulin Ratio 1.3 (1.1-1.8); Alkaline Phosphatase 108 U/L (38-126); Anion Gap 15.9 mEq/L (5-15); Aspartate Amino Transferase 34 U/L (17-59); Bilirubin,Total 0.5 mg/dl (0.2-1.3); Blood Urea Nitrogen 10 mg/dl (9-20); Calcium 9.5 mg/dl (8.4-10.2); Carbon Dioxide 21 mmol/L (22.0-30.0); Chloride 107 mmol/L (98-107); Creatinine Clearance Estimated 74 mL/min (50-200); Creatinine,Serum 0.90 mg/dl (0.66-1.25); Estimated Glomerular Filt Rate 83 ml/min (>60); GFR (African American) 100 ML/MIN (>60); Globulin 3.5 g/dL (1.3-3.2); Glucose 110 mg/dl (74-100); Magnesium 2.0 mg/dl (1.6-2.3); Phosphorous 4.2 mg/dl (2.5-4.5); Potassium 3.9 mmoL/L (3.5-5.1); Sodium 140 mmol/L (136-145); Total Protein,Serum 8.2 g/dl (6.3-8.2)
[2025-04-14] MEDS: FAMOTIDINE 20MG TABLET 20 MG PO (07:53)
[2025-04-14] MEDS: BELLADONNA ALKALOIDS 60 ML ML PO (07:53)
[2025-04-14 08:03] LABS: Bilirubin,Urine Negative (Negative); Color,Urine YELLOW (Yellow); Glucose,Urine (UA) Negative (Negative); Ketones,Urine Negative (Negative); Leukocyte Esterase,Urine 3+ (Negative); PH,Urine 5.5 (5.0-8.5); Protein,Urine TRACE (Negative); Specific Gravity, Urine 1.010 (1.005-1.030); Urobilinogen,Urine 0.2 EU/dl (0.2)
[2025-04-14 08:13] LABS: Bacteria,Urine 1+ /lpf; Squamous Epithelial Cell,Urine Occasional #/hpf (0-5); WBC,Urine TNTC #/hpf (0-3)
[2025-04-14] MEDS: ACETAMINOPHEN 500MG TAB 1000 MG PO (08:53)
[2025-04-14] MEDS: KETOROLAC 15MG/ML VIAL 15 MG IV (08:53)
[2025-04-14] MEDS: LIDOCAINE 2% UROJET 10ML TP (08:53)
[2025-04-14 09:05] VITALS: BP 183/123
[2025-04-14 09:46] VITALS: BP 163/90; PULSE 80; RESP 18; TEMP 37.1; O2SAT 97
--- NOTE | 2025-04-17 08:54 | PC.NURSE ---
Urine culture reviewed by Dr. Lindsey. If patient still symptomatic needs prescription changed to Nitrofurantoin 100 mg PO BID x 5 days. Attempted to call patient, mailbox full, unable to leave message. Attempted to call , left message to return call.
== END 2025-04-14 10:05 | disposition home or self-care (01) ==
PROVIDERS: Emergency Provider Emergency Medicine
DX: N10 Acute pyelonephritis (principal); R10.A2 Flank pain, left side; R33.8 Other retention of urine; R35.0 Frequency of micturition; N40.0 Benign prostatic hyperplasia without lower urinary tract symptoms; B96.89 Other specified bacterial agents as the cause of diseases classified elsewhere
CPT/HCPCS: 51702; 51798; 80053; 81001; 83735; 84100; 85025; 87086; 87088; 96365; 96375; 99285; J0696; J1885

== ENCOUNTER 2025-04-14 16:54 | Emergency (ER) | payer MEDICAID, SELFPAY ==
[2025-04-14 17:19] VITALS: BP 147/85; PULSE 95; RESP 20; TEMP 36.8; O2SAT 98; BMI 23.6
--- OUTSIDE RECORDS SUMMARY | 2025-04-14 17:35 | XMS_ITS | Clinical Summary ---
Author Organization Healthcare Address [address] [place] [address] Care Team Providers Care Ophthalmic Dispenser Name Role Phone Charu Watts MD Primary Care Provider +1- [phone] Allergies No known active allergies Medications atorvastatin [...] time in the past 12 m [facility], were you homeless or living in a halfway (including now)? No 07/16/2024 Safety and Environment [...] [facility]-Abdominal Aortic Aneurys m (AAA) Screening 2017 [id number] Vaccine ( season) 2025 [facility]-Influenza Vaccine (#1) [...] 5.6 <5.7 % 07/16/2024 7:[address] [facility] Blood Venous blood specimen / Unknown Venipuncture / Unknown 07/16/2024 11:34 AM EDT 07/16/2024 11:[address] [facility] - 07/16/2024 7:09 PM EDT HA1C Interpretive Data: Diagnosis of Diabetes: Diabetic > or = 6.5% Pre-diabetic 5.7 to 6.4% Non-diabetic < or = 5.6% Glycemic Targets for Type I and Type II Diabetics: Non- Adults <7.0% Adults <6.0% Children and Adolescents <7.5% Source: [place] [employer]. Standards of medical care in diabetes,2017. Diabetes Care.2017:40 (suppl 1):S1-S135. HbA1c assay performed by an ion-exchange chromatography method that is certified traceable to the DCCT. Charu Watts MD LAB BLOOD ORDERABLES Final Result [facility] [address] [place] [address] from Last 3 Months or Most Recently Relevant to Health Maintenance Insurance [facility] MEDICAID [facility] MEDICARE Care Teams Ophthalmic Dispenser Relationship Specialty Start Date End Date Charu Watts MD [address] [place] [phone] PCP - General 07/16/24
--- NOTE | 2025-04-14 17:58 | ED_ITS ---
Discharge Plan Disposition Patient Disposition: Eloped Condition: Undetermined Chief Complaint: Urogenital-Male Prescriptions Prescriptions: No Action tamsulosin [Flomax] 0.4 mg capsule 0.4 mg PO DAILY 90 Days Qty: 90 1RF cefdinir 300 mg capsule 300 mg PO BID 10 Days Qty: 20 0RF levofloxacin 500 mg tablet 500 mg PO DAILY 10 Days Qty: 10 0RF polyethylene glycol 3350 [Miralax] 17 gram/dose powder 17 g PO DAILY 4 Days Qty: 68 0RF sulfamethoxazole-trimethoprim [Bactrim DS] 800-160 mg tablet 1 tab PO BID 14 Days Qty: 28 0RF omeprazole 40 mg capsule,delayed release(DR/EC) 40 mg PO DAILY 28 Days Qty: 28 0RF sulfamethoxazole-trimethoprim [Bactrim DS] 800-160 mg tablet 1 tab PO BID 14 Days Qty: 28 0RF omeprazole 40 mg capsule,delayed release(DR/EC) 40 mg PO DAILY 28 Days Qty: 28 0RF omeprazole 40 mg capsule,delayed release(DR/EC) 40 mg PO DAILY 56 Days Qty: 56 0RF tamsulosin 0.4 mg capsule 0.4 mg PO DAILY Qty: 14 0RF cefadroxil 500 mg capsule 500 mg PO BID Qty: 14 0RF Referrals Follow up/Referrals: Provider,Referral, MD [Primary Care Provider, Medical] - See instructions Clinical Impressions Clinical Impression: Patient left before treatment completed Instructions Patient Instructions: DI for Urinary Tract Infection (UTI), DI for Urinary Tract Infection in Children Print Language Print Language: Tuvaluan Discharge ED Provider: Juliane Bennett Adult HPI General Chief complaint: Urogenital-Male Stated complaint: blood clots in cath Time Seen by Provider: 04/14/25 17:53 Mode of Arrival: Ambulatory Source of Information: Patient and Spouse Description of Symptoms (Recalled from ER Triage Doc. by RN): patient presents to the ED with for a clogged catheter . patient was just seen in the ED and d/c at 11am with a urinary catheter. patient stated when he got home he noticed his catheter bag was bloody, it was really cloudy and clogged . History of Present Illness HPI narrative: Patient is a 74-year-old gentleman was seen earlier today in the emergency department for hematuria. Patient states that a catheter was placed and patient had some hematuria but since being discharged, patient has had increased in blood from his catheter and patient's catheter was clogged which is what brought him here to the emergency department. Patient states that he has not had any abdominal pain. Related Data Previous Rx's ?Medication ?Instructions ?Recorded cefdinir 300 mg capsule 300 mg PO BID 10 days #20 ca ps 06/09/24 tamsulosin 0.4 mg capsule (Flomax) 0.4 mg PO DAILY 90 days #90 caps 06/16/24 levofloxacin 500 mg tablet 500 mg PO DAILY 10 days #10 tabs 06/22/24 polyethylene glycol 3350 17 17 g PO DAILY 4 days #68 g ventura 06/22/24 gram/dose oral powder (Miralax) omeprazole 40 mg capsule,delayed 40 mg PO DAILY 4 week s #28 caps 01/06/25 release omeprazole 40 mg capsule,delayed 40 mg PO DAILY 4 week s #28 caps 01/06/25 release sulfamethoxazole 800 1 tab PO BID 14 days #28 tab s 01/06/25 mg-trimethoprim 160 mg tablet (Bactrim DS) sulfamethoxazole 800 1 tab PO BID 14 days #28 tab s 01/06/25 mg-trimethoprim 160 mg tablet (Bactrim DS) cefadroxil 500 mg capsule 500 mg PO BID #14 caps 04/14 omeprazole 40 mg capsule,delayed 40 mg PO DAILY 8 week s #56 caps 04/14/25 release tamsulosin 0.4 mg capsule 0.4 mg PO DAILY #14 caps 01/29 Allergies Allergy/AdvReac Type Severity Reaction Status Date / Time No Known Allergies Allergy Verified 06/16/24 11:18 [facility] Disclaimer: The information contained in this section may have been updated after the patient was seen, as this information can be updated by other users. Social History Smoking Status: Current every day smoker alcohol intake: never current occupational status: other Travel in the last 8 weeks?: None Have you lived/traveled outside US in past 30 days?: No Contact w/someone who lives/traveled outside US past 30 days?: No Exposure to someone with infectious disease in past 14 days?: No Do you have a fever (greater than 100.4 F or 38 C)?: No Have you tested positive for COVID-19?: No Exposed to someone with COVID-19 in past 14 days?: No Do you have a sore throat?: No Do you have a cough?: No Do you have any weakness?: No Do you have any diarrhea?: No Are you experiencing any unusual bleeding?: No Do you have any muscle aches/pain?: No Do you have any abdominal pain?: No Are you experiencing loss of taste or smell?: No Other Medical History Have you received the Flu Vaccine for this season: No Have you received the Pneumonia Vaccine: No ROS Obtained: Yes All systems reviewed & no additional complaints except as documented and Yes Systems reviewed as appropriate & no additional complaints except as documented Physical Exam General General appearance: alert and in no apparent distress Head Head exam: atraumatic, normocephalic and normal inspection Eye Eye exam: Present normal appearance, PERRL and EOMI; Absent scleral icterus ENT ENT exam: Present normal exam and normal external ear exam Neck Neck exam: Present normal inspection and full ROM Chest Chest inspection: Present normal inspection and symmetric chest wall rise Respiratory Respiratory exam: Present normal lung sounds bilaterally; Absent respiratory distress or wheezes Cardiovascular Cardiovascular exam: Present regular rate, normal rhythm and normal heart sounds Abdominal Exam Abdominal exam: Present soft and distention; Absent tenderness, guarding or rebound Extremities Exam Extremities exam: Present normal inspection and full ROM Back Exam Back exam: Present normal inspection and full ROM Neurological Exam Neurological exam: Present alert and oriented X3 Psychiatric Psychiatric exam: Present normal affect and normal mood Skin Skin exam: Present warm and dry Medical Decision Making Medical Records Medical records reviewed: Yes I reviewed the patient's medical records. Screening: Per USPSTF and CDC recommendations, given the prevalence of disease in our region, it is our hospital?s policy to screen for HIV and viral Hepatitis for all patients aged 18 and over and those with ongoing risk factors. Aashish Inquiry Pt receiving controlled substance: No Vital Signs: 04/14/25 17:19 Temperature 98.2 F Temperature Source Oral Pulse Rate [Right Radial] 95 H Respiratory Rate 20 Blood Pressure [Right Arm] 147/85 H Blood Pressure Mean [Right Arm] 105 Blood Pressure Source [Right Arm] Automatic Cuff Blood Pressure Position [Right Arm] Sitting 02 Sat by Pulse Oximetry 98 Oxygen Delivery Method Room Air Lab Data Lab results reviewed: Yes I reviewed the patient's lab results. Orders (Tests/Meds): ORDERS Category Date Time Status CBC w/Auto Diff [Complete Blood Count Auto Diff] Stat Lab 04/14/25 17:54 Ordered CMP [Comprehensive Metabolic Panel] Stat Lab 04/14/25 17:54 Ordered UA [Urinalysis and Microscopic] Stat Lab 04/14/25 17:54 Ordered Urine Culture Stat Micro 04/14/25 17:54 Ordered Medical Decision Narrative: Patient is a 74-year-old gentleman who presented to the emergency department with hematuria, clogging of his Shelton catheter. On arrival, patient was hemodynamically stable with unremarkable vital signs. Differential includes but not limited to: Bladder hemorrhage, increased hematuria, significant anemia, urinary tract infection, amongst others Patient was seen earlier today, records were reviewed. Patient had a CT of the abdomen that showed some mild right hydro with no active bleeding. Hemoglobin stable at 14.7. On my evaluation, bedside ultrasound was performed which showed no significant bladder hemorrhage. Patient's Shelton catheter was appropriately positioned in the bladder. Patient's Shelton catheter was flushed at bedside. Patient's Shelton was observed and patient had appropriate draining Shelton catheter. Bladder scan was performed which showed no significant urine in the bladder suggestive of no clogging or significant obstruction at this time. Patient left before visit was fully complete. Critical Care Critical Care Time Critical Care Time: No
--- NOTE | 2025-04-14 18:11 | PC.NURSE ---
patient brought back into triage after patient knocked on the door stating his catheter bag needed emptied. upon assessment of the urinary bag, it is filled with red blood/urine in its entirety. the urinary bag would not drain despite efforts to empty it. urinary bag was changed. Shelton catheter was flushed with 20 ml of saline without difficulty.
--- NOTE | 2025-04-14 18:17 | PC.NURSE ---
bladder scan done in triage which was 1mL. Donald BAUM notified.
--- NOTE | 2025-04-14 18:32 | PC.NURSE ---
patient was pulled back into triage to obtain ordered labwork via straight stick. patient declined blood work at this time. MD Bennett notified. patient asked to wait in the lobby.
== END 2025-04-14 19:29 | disposition left against medical advice (07) ==
LOC: ER 17:33
PROVIDERS: Emergency Provider Student in an Organized Health Care Education/Training Program
DX: T83.83XA Hemorrhage due to genitourinary prosthetic devices, implants and grafts, initial encounter (principal)
CPT/HCPCS: 51798; 99283

== ENCOUNTER 2025-04-22 09:32 | Emergency (ER) | payer MEDICARE, SELFPAY ==
[2025-04-22 09:23] VITALS: BP 147/103; PULSE 77; RESP 20; TEMP 37.2; O2SAT 97; BMI 22.4
[2025-04-22 09:31] VITALS: BP 147/103; PULSE 82; O2SAT 98
[2025-04-22 10:00] VITALS: BP 131/82; PULSE 70; O2SAT 96
--- NOTE | 2025-04-22 10:01 | ED_ITS ---
Discharge Plan Disposition Patient Disposition: Home, Self-Care Prescriptions Prescriptions: No Action tamsulosin [Flomax] 0.4 mg capsule 0.4 mg PO DAILY 90 Days Qty: 90 1RF cefdinir 300 mg capsule 300 mg PO BID 10 Days Qty: 20 0RF levofloxacin 500 mg tablet 500 mg PO DAILY 10 Days Qty: 10 0RF polyethylene glycol 3350 [Miralax] 17 gram/dose powder 17 g PO DAILY 4 Days Qty: 68 0RF sulfamethoxazole-trimethoprim [Bactrim DS] 800-160 mg tablet 1 tab PO BID 14 Days Qty: 28 0RF omeprazole 40 mg capsule,delayed release(DR/EC) 40 mg PO DAILY 28 Days Qty: 28 0RF sulfamethoxazole-trimethoprim [Bactrim DS] 800-160 mg tablet 1 tab PO BID 14 Days Qty: 28 0RF omeprazole 40 mg capsule,delayed release(DR/EC) 40 mg PO DAILY 28 Days Qty: 28 0RF omeprazole 40 mg capsule,delayed release(DR/EC) 40 mg PO DAILY 56 Days Qty: 56 0RF tamsulosin 0.4 mg capsule 0.4 mg PO DAILY Qty: 14 0RF cefadroxil 500 mg capsule 500 mg PO BID Qty: 14 0RF Referrals Follow up/Referrals: Provider,Referral, MD [Primary Care Provider, Medical] - See instructions Activity Restrictions/Add. Instructions Additional Instructions/Restrictions: You have an appointment with Dr. Napoles with the urology team on May 04 at 9 AM. I highly encourage you to attend this appointment for continued management of your enlarged prostate and Shelton catheter. Continue taking your antibiotics as prescribed. If you develop any new or worsening symptoms, such as fever, worsening abdominal pain, or if you develop any new or become concerned for your health for any reason, return to the emergency department for evaluation. Clinical Impressions Clinical Impression: Acute urinary retention, Hematuria Instructions Patient Instructions: DI for Urinary Tract Infection (UTI), DI for Urinary Tract Infection in Children Print Language Print Language: Bulgarian Discharge ED Provider: Johny Morton Adult HPI General Chief complaint: Urogenital-Male Stated complaint: Catheter not draining Time Seen by Provider: 04/22/25 09:45 Mode of Arrival: EMS Source of Information: Patient Description of Symptoms (Recalled from ER Triage Doc. by RN): pt is here bc leg bag was not emptying History of Present Illness HPI narrative: Roby Monterroso is a 74y male with a history of enlarged prostate, urinary retention with indwelling Shelton catheter that was placed here in the emergency department on the who presents to the emergency department for concern for blood in his Shelton bag and improper draining of his catheter. Patient states that this morning, he felt like his catheter bag was about to explode because it is retaining pink urine. The EMS crew came out and were able to get it draining again, however it stopped draining again after they left, so he called 911 and came to the emergency department. Patient states that often times he has dark bloody urine that his urine is now pink. He states that when he first gets up in the morning, his urine is clear and then it becomes pink after he gets up. He states that he is currently on antibiotics for urinary tract infection but is not sure if it is too strong as he sometimes has tingling around his penis after he takes the medication. States that he has not followed up with urology since discharge. He has not followed with his primary care doctor. Related Data Previous Rx's ?Medication ?Instructions ?Recorded cefdinir 300 mg capsule 300 mg PO BID 10 days #20 ca ps 06/09/24 tamsulosin 0.4 mg capsule (Flomax) 0.4 mg PO DAILY 90 days #90 caps 06/16/24 levofloxacin 500 mg tablet 500 mg PO DAILY 10 days #10 tabs 06/22/24 polyethylene glycol 3350 17 17 g PO DAILY 4 days #68 g ventura 06/22/24 gram/dose oral powder (Miralax) omeprazole 40 mg capsule,delayed 40 mg PO DAILY 4 week s #28 caps 01/06/25 release omeprazole 40 mg capsule,delayed 40 mg PO DAILY 4 week s #28 caps 01/06/25 release sulfamethoxazole 800 1 tab PO BID 14 days #28 tab s 01/06/25 mg-trimethoprim 160 mg tablet (Bactrim DS) sulfamethoxazole 800 1 tab PO BID 14 days #28 tab s 01/06/25 mg-trimethoprim 160 mg tablet (Bactrim DS) cefadroxil 500 mg capsule 500 mg PO BID #14 caps 04/14 omeprazole 40 mg capsule,delayed 40 mg PO DAILY 8 week s #56 caps 04/14/25 release tamsulosin 0.4 mg capsule 0.4 mg PO DAILY #14 caps 01/29 Allergies Allergy/AdvReac Type Severity Reaction Status Date / Time No Known Allergies Allergy Verified 06/16/24 11:18 [facility] Disclaimer: The information contained in this section may have been updated after the patient was seen, as this information can be updated by other users. Social History Smoking Status: Current every day smoker alcohol intake: never current occupational status: other Travel in the last 8 weeks?: None Other Medical History Have you received the Flu Vaccine for this season: No Have you received the Pneumonia Vaccine: No ROS Obtained: Yes Systems reviewed as appropriate & no additional complaints except as documented Physical Exam General General appearance: alert and in no apparent distress Head Head exam: atraumatic Eye Eye exam: Present normal appearance ENT ENT exam: Present normal external ear exam Neck Neck exam: Present full ROM Chest Chest inspection: Present symmetric chest wall rise Respiratory Respiratory exam: Present normal lung sounds bilaterally; Absent respiratory distress Cardiovascular Cardiovascular exam: Present regular rate and normal rhythm Abdominal Exam Abdominal exam: Absent distention exam: Present deferred and other (Shelton catheter in place. Yellow/light pink urine in Shelton bag.) Extremities Exam Extremities exam: Present normal inspection Back Exam Back exam: Present normal inspection Neurological Exam Neurological exam: Present alert and oriented X3 Psychiatric Psychiatric exam: Present normal affect Skin Skin exam: Present warm and dry Medical Decision Making Medical Records Screening: Per USPSTF and CDC recommendations, given the prevalence of disease in our region, it is our hospital?s policy to screen for HIV and viral Hepatitis for all patients aged 18 and over and those with ongoing risk factors. Aashish Inquiry Pt receiving controlled substance: No Vital Signs: 04/22/25 09:23 04/22/25 09:31 04/22/25 10:00 Temperature 98.9 F Temperature Source Oral Pulse Rate 82 70 Pulse Rate [Left Radial] 77 Respiratory Rate 20 Blood Pressure 147/103 H 131/82 Blood Pressure [Right Arm] 147/103 H Blood Pressure Mean [Right Arm] 117 02 Sat by Pulse Oximetry 97 98 96 Oxygen Delivery Method Room Air Room Air Room Air 04/22/25 10:30 Temperature Temperature Source Pulse Rate 69 Pulse Rate [Left Radial] Respiratory Rate Blood Pressure 134/80 Blood Pressure [Right Arm] Blood Pressure Mean [Right Arm] 02 Sat by Pulse Oximetry 97 Oxygen Delivery Method Medical Decision Narrative: Roby Monterroso is a 74y male with a history of enlarged prostate, urinary retention with indwelling Shelton catheter that was placed here in the emergency department on the who presents to the emergency department for concern for blood in his Shelton bag and improper draining of his catheter. Patient states that this morning, he felt like his catheter bag was about to explode because it is retaining pink urine. The EMS crew came out and were able to get it draining again, however it stopped draining again after they left, so he called 911 and came to the emergency department. Patient states that often times he has dark bloody urine that his urine is now pink. He states that when he first gets up in the morning, his urine is clear and then it becomes pink after he gets up. He states that he is currently on antibiotics for urinary tract infection but is not sure if it is too strong as he sometimes has tingling around his penis after he takes the medication. States that he has not followed up with urology since discharge. He has not followed with his primary care doctor. On arrival, patient is afebrile, hemodynamically stable, heart rate within normal limits. Patient's Shelton bag noted to have a blood clot in the distalmost aspect where it drains into the toilet. This was irrigated and clot was cleared and it is now draining appropriately. Patient has no new symptoms since his last visit. Patient is taking cefdinir for his urinary tract infection and all previous visit, patient's urinalysis showed 3+ leukocyte esterase, too numerous to count white blood cells. Patient's urine culture shows pedicoccus pentosaceus but no sensitivities are available at this time. Patient does state that he had stopped taking his antibiotic for a few days thinking that it was causing his penile pain. I encouraged him to continue taking this as prescribed we were able to call urology clinic and get him an appointment for May 04 at 9 AM. Patient was also given supplies and education on troubleshooting his Shelton catheter at home. I do not feel the patient requires any additional imaging or blood work as he is otherwise asymptomatic. Strict return precautions were given. All questions were answered. He demonstrated understanding and was in agreement this plan. He was then discharged from the emergency department in stable condition. Critical Care Critical Care Time Critical Care Time: No
[2025-04-22 10:30] VITALS: BP 134/80; PULSE 69; O2SAT 97
[2025-04-22 10:59] VITALS: BP 134/80; PULSE 70; RESP 20; TEMP 36.9; O2SAT 98
--- OUTSIDE RECORDS SUMMARY | 2025-04-22 11:08 | XMS_ITS | Clinical Summary ---
Author Organization Healthcare Address [address] [place] [address] Care Team Providers Care Tool And Die Manager Name Role Phone Charu Watts MD Primary Care Provider [phone]- [phone] Allergies No known active allergies Medications atorvastatin [...] any time in the past 12 m [facility], were you homeless or living in a nursing home (including now)? No 07/16/2024 Safety and Environment [...] [facility]-Abdominal Aortic Aneurys m (AAA) Screening 2017 [id number] Vaccine ( season) 2025 [facility]-Influenza Vaccine (#1) 2025 [facility]- SDOH Screenings 01/16/2025 [facility]-Adult SDOH Screenings 01/16/2025 07/16/2024 [facility]-/Child/Adol SDOH Screenings 01/16/2025 07/16/2024 [facility]-Depression Screening 07/16/2025 025, 07/16/2024 [facility]-RSV Vaccine: 60+ Years o r (1 - 1-dose 75+ series) 11/17/2027 [facility]-Diabetes: Hemoglobin A1C Discontinued 04/2025, 12/29/2020 [facility]-Obesity Intervention Completed 07/16/2024 HPV Vaccines (No Doses Required) Completed [facility]-HIB Vaccines Aged Out No longer e [...] 5.6 <5.7 % 07/16/2024 7:09 PM EDT [facility] Blood Venous blood specimen / Unknown Venipuncture / Unknown 07/16/2024 11:34 AM EDT 07/16/2024 11:34 AM EDT Narrative [facility] - 07/16/2024 7:09 PM EDT HA1C Interpretive Data: Diagnosis of Diabetes: Diabetic > or = 6.5% Pre-diabetic 5.7 to 6.4% Non-diabetic < or = 5.6% Glycemic Targets for Type I and Type II Diabetics: Non- Adults <7.0% Adults <6.0% Children and Adolescents <7.5% Source: [place] [employer]. Standards of medical care in diabetes,2017. Diabetes Care.2017:40 (suppl 1):S1-S135. HbA1c assay performed by an ion-exchange chromatography method that is certified traceable to the DCCT. Charu Watts MD LAB BLOOD ORDERABLES Final Result [facility] [address] [place] [address] from Last 3 Months or Most Recently Relevant to Health Maintenance Insurance [facility] MEDICAID [facility] MEDICARE Care Teams Tool And Die Manager Relationship Specialty Start Date End Date Charu Watts MD [address] [place] [id number] PCP - General 07/16/24
== END 2025-04-22 11:00 | disposition home or self-care (01) ==
PROVIDERS: Emergency Provider Student in an Organized Health Care Education/Training Program
DX: R33.9 Retention of urine, unspecified (principal); R31.9 Hematuria, unspecified; T83.091A Other mechanical complication of indwelling urethral catheter, initial encounter
CPT/HCPCS: 99283

== ENCOUNTER 2025-05-04 08:30 | Outpatient (CLI) | payer MEDICARE, SELFPAY ==
--- OUTSIDE RECORDS SUMMARY | 2025-05-05 10:08 | XMS_ITS | Clinical Summary ---
Author Organization Healthcare Address [address] [place] [address] Care Team Providers Care Community Arts Worker Name Role Phone Charu Watts MD Primary Care Provider [phone]- [phone] Allergies No known active allergies Medications atorvastatin [...] any time in the past 12 m [facility], were you homeless or living in a senior living (including now)? No 07/16/2024 Safety and Environment [...] [facility]-Abdominal Aortic Aneurys m (AAA) Screening 2017 [id number] Vaccine ( season) 2025 [facility]-Influenza Vaccine (#1) [...] 5.6 <5.7 % 07/16/2024 7:09 PM EDT [facility] Blood Venous blood specimen / Unknown Venipuncture / Unknown 07/16/2024 11:34 AM EDT 07/16/2024 11:34 AM EDT Narrative [facility] - 07/16/2024 7:09 PM EDT HA1C Interpretive Data: Diagnosis of Diabetes: Diabetic > or = 6.5% Pre-diabetic 5.7 to 6.4% Non-diabetic < or = 5.6% Glycemic Targets for Type I and Type II Diabetics: Non- Adults <7.0% Adults <6.0% Children and Adolescents <7.5% Source: [place] [employer]. Standards of medical care in diabetes,2017. Diabetes Care.2017:40 (suppl 1):S1-S135. HbA1c assay performed by an ion-exchange chromatography method that is certified traceable to the DCCT. Charu Watts MD LAB BLOOD ORDERABLES Final Result [facility] [address] [place] [address] from Last 3 Months or Most Recently Relevant to Health Maintenance Insurance REPLACED BY [facility] MEDICAID [facility] MEDICARE Care Teams Community Arts Worker Relationship Specialty Start Date End Date Charu Watts MD [address] [place] [phone] PCP - General 07/16/24
== END 2025-05-04 23:59 | disposition home or self-care (01) ==
LOC: LAB.DROPOF 05-05 09:57
PROVIDERS: Visit Provider Urology
DX: R33.8 Other retention of urine (principal); Z97.8 Presence of other specified devices
CPT/HCPCS: 87086; 87088